=== PATIENT | male | born 1935 | race Caucasian/White ===

== ENCOUNTER 2018-11-23 22:21 | Inpatient (IN) ==
[2018-11-23] MEDS ORDERED: TYLENOL PO ONE (22:40)
[2018-11-23] MEDS ORDERED: NS 1,000 ML IV ONE ×2 (22:40→23:59)
[2018-11-23 23:03] LABS: ALLEN TEST YES; BE 0.8 mmoll (-3.0-3.0); BLOOD TYPE ARTERIAL; HCO3-(ACT) 25.5 mmoll (20.0-26.0); O2(CT) 15.8 mL/dL (15.0-23.0); O2HB 95.6 % (95.0-99.0); PCO2(98.6) 32 mmHg (35-45); PO2(98.6) 83 mmHg (60-100); SAMPLE BLOOD; SAO2 97.9 % (95.0-100.0); THB 11.7 g/dL (11.5-17.4); pH(98.6) 7.48 (7.35-7.45)
[2018-11-23 23:04] LABS: MODALITY CANNULA
--- NOTE | 2018-11-23 23:09 | PROVIDER DOCUMENTATION ---
This chart was entered by Lilian Cruz Scribe, acting as scribe for Mindi Davis CRNP. HPI-General Adult - General Stated Complaint: hip pain Time Seen by Provider: 11/23/18 22:29 Source: EMS Allergies/Adverse Reactions: Patient Allergies Allergy/AdvReac Type Severity Reaction Status Date / Time meperidine HCl * AdvReac Severe Unknown Verified 05/19/13 07:56 [From Demerol] Home Medications: Home Medication List Medication Instructions Recorded Confirmed Last Taken Type Alfuzosin E.r. [Uroxatral] 10 mg PO DAILY 05/17/13 05/17/13 05/19/13 05:00 History Citalopram [Celexa] 40 mg PO DAILY 05/17/13 05/17/13 05/18/13 07:00 History Nabumetone [Relafen] 500 mg PO BID 05/17/13 05/19/13 04/26/13 History Telmisartan [Micardis] 40 mg PO DAILY 05/17/13 05/17/13 05/19/13 05:00 History Docusate Sodium [Colace] 100 mg PO BID #0 capsule 05/20/13 Unknown Rx Hydrocodone/APAP 7.5 mg/325 mg 1 each PO Q4H PRN PRN #15 tablet 05/20/13 Unknown Rx [[place]-7.5] - History of Present Illness -Gen Adult Nature of Presenting Problems: 83 yowm presents w/ems w/cc ems main historian. ems called to pt home due to hip pain on rt side. pt was in bed when pain occurred. when ems arrived at home, pt was moaning and tearful. pt got 50 fentanyl and bolus enroute. pt is warm to palp. pt has hx of dementia and bilat hip replacement. Location of Pain/Injury: reports: lower extremity (rt hip pain) Pain Radiation: reports: no radiation Onset/Duration: reports: just prior to arrival Timing: reports: improving Review of Systems - Adult - REVIEW OF SYSTEMS - ADULT Constitutional: reports: no symptoms reported Eyes: reports: no symptoms reported Ears, Nose, Mouth & Throat: reports: no symptoms reported Cardiovascular: reports: no symptoms reported Respiratory: reports: no symptoms reported Gastrointestinal: reports: no symptoms reported Genitourinary: reports: no symptoms reported Musculoskeletal: reports: see HPI, joint pain (rt hip pain). denies: back pain, joint swelling, neck pain Integumentary: reports: no symptoms reported Neurological: reports: no symptoms reported Psychiatric: reports: no symptoms reported Endocrine: reports: no symptoms reported Hematologic/Lymphatic: reports: no symptoms reported Allergic/Immunologic: reports: no symptoms reported All Other Systems: Reviewed and Negative Past History - Adult - PAST MEDICAL HISTORY-ADULT Review of Records: reports: Old Records Reviewed, Nursing Assessment Review, Medications Reviewed, Social history reviewed & non-contributory. Major Childhood Illnesses: reports: denies history Cardiovascular: reports: HTN Respiratory: reports: denies history Gastrointestinal: reports: denies history Obstetrical/Gynecological: reports: denies history Genitourinary: reports: denies history Musculoskeletal: reports: denies history Neurological: reports: denies history Endocrine/Immune: reports: denies history Other Conditions: reports: other cancer (skin) - PRIOR SURGERIES/PROCEDURES Surgical/Procedure History: reports: joint replacement - IMMUNIZATION STATUS Childhood Immunizations: See Nurse Assessment Flu Vaccine: See Nurse Assessment - FAMILY HISTORY Family History: reviewed, not pertinent Physical Exam-General - PHYSICAL EXAM-ADULT Initial Vital Signs Reviewed: Yes - CONSTITUTIONAL General Appearance: alert, mild distress, thin, lethargic. negative: obtunded, combative - EYES Eyes: PERRL/EOMI, pink conjunctivae - HEAD, EARS, NOSE, MOUTH & THROAT HENMT: normocephalic/atraumatic, moist mucous membranes, normal ENT inspection - NECK Neck: supple, normal inspection - RESPIRATORY Respiratory: chest non-tender, lungs clear, normal breath sounds - CARDIOVASCULAR Cardiovascular: normal peripheral pulses, regular rate, rhythm - GASTROINTESTINAL (ABDOMEN) Abdominal Exam: normal bowel sounds, non tender, soft - LYMPHATIC Lymphatic: no adenopathy - MUSCULOSKELETAL Back Exam: normal inspection, no CVA tenderness, no vertebral tenderness. negative: CVA tenderness, decreased range of motion, vertebral tenderness Extremity: normal range of motion, non-tender, normal inspection, no pedal edema , no calf tenderness, normal capillary refill. negative: deformity, erythema, inflammation Peripheral Pulses: radial (R): 2+, radial (L): 2+ - SKIN Integumentary: normal color, normal turgor, warm/dry, other (psoriasis on dorsal foot and ankle rt side). negative: laceration(s), rash, swelling, tenderness - NEUROLOGIC Neurologic: grossly normal, no motor/sensory deficits - PSYCHIATRIC Psych/Mental Status: normal mood/affect, normal thought content, normal thought process, other (pt lethargic but not disoriented). negative: oriented x 3, depressed affect, paranoid, tearful Progress - PLAN OF CARE/RESULTS Progress/Plan/Lab Results: Laboratory Tests 11/23/18 11/23/18 11/23/18 22:45 23:06 23:06 WBC 8.74 RBC 3.48 L Hgb 11.4 L Hct 33.8 L MCV 97.1 MCH 32.8 H MCHC 33.7 RDW Std Deviation 12.3 Plt Count 144 MPV 11.2 H Immature Gran % (Auto) 0.7 H Neut % (Auto) 91.8 H Lymph % (Auto) 3.3 L [place] % (Auto) 3.2 Eos % (Auto) 0.8 Baso % (Auto) 0.2 Immature Gran # (Auto) 0.06 H Neut # (Auto) 8.02 H Lymph # (Auto) 0.29 L [place] # (Auto) 0.28 Eos # (Auto) 0.07 Baso # (Auto) 0.02 PT INR PTT (Actin FS) Specimen Type ARTERIAL Sample Site R RADIAL pH 7.48 H pCO2 32 L pO2 83 HCO3 25.5 Base Excess 0.8 Oxyhemoglobin 95.6 ABG O2 Sat (Calculated) 15.8 ABG O2 Saturation 97.9 ABG Carboxyhemoglobin 1.30 ABG Methemoglobin 1.0 Ryan Test YES A-a O2 Difference 105.0 Total Hemoglobin 11.7 Lactate 0.80 Liter Flow 3.0 Blood Gas Modality [place] FiO2 % 32.0 Sodium 141 Potassium 4.4 Chloride 106 Carbon Dioxide 22 L Anion Gap 13 BUN 26 H Creatinine 1.5 H Estimated GFR/1.73 m2 45 BUN/Creatinine Ratio 17 Glucose 121 H Calculated Osmolality 287 Calcium 8.7 L Magnesium 1.6 Total Bilirubin 0.55 AST 19 ALT 10 Alkaline Phosphatase 62 Creatine Kinase 133 Troponin T Total Protein 5.8 L Albumin 3.8 Globulin 2.0 Albumin/Globulin Ratio 1.9 Plasma Lactate Urine Source Urine Color Urine Turbidity Urine pH Ur Specific [place] Urine Protein Ur Glucose (Stick) Ur Ketones (Stick) Urine Blood Urine Nitrite Urine Bilirubin Urobilinogen Dipstick Urine Leukocytes Urine WBC (Auto) Urine RBC (Auto) U Epithel Cells (Auto) Urine Bacteria (Auto) 11/23/18 11/23/18 11/23/18 23:06 23:06 23:06 WBC RBC Hgb Hct MCV MCH MCHC RDW Std Deviation Plt Count MPV Immature Gran % (Auto) Neut % (Auto) Lymph % (Auto) [place] % (Auto) Eos % (Auto) Baso % (Auto) Immature Gran # (Auto) Neut # (Auto) Lymph # (Auto) [place] # (Auto) Eos # (Auto) Baso # (Auto) PT 14.4 INR 1.10 PTT (Actin FS) 34.6 Specimen Type Sample Site pH pCO2 pO2 HCO3 Base Excess Oxyhemoglobin ABG O2 Sat (Calculated) ABG O2 Saturation ABG Carboxyhemoglobin ABG Methemoglobin Ryan Test A-a O2 Difference Total Hemoglobin Lactate Liter Flow Blood Gas Modality FiO2 % Sodium Potassium Chloride Carbon Dioxide Anion Gap BUN Creatinine Estimated GFR/1.73 m2 BUN/Creatinine Ratio Glucose Calculated Osmolality Calcium Magnesium Total Bilirubin AST ALT Alkaline Phosphatase Creatine Kinase Troponin T < 0.010 Total Protein Albumin Globulin Albumin/Globulin Ratio Plasma Lactate 0.7 Urine Source Urine Color Urine Turbidity Urine pH Ur Specific [place] Urine Protein Ur Glucose (Stick) Ur Ketones (Stick) Urine Blood Urine Nitrite Urine Bilirubin Urobilinogen Dipstick Urine Leukocytes Urine WBC (Auto) Urine RBC (Auto) U Epithel Cells (Auto) Urine Bacteria (Auto) 11/23/18 23:33 WBC RBC Hgb Hct MCV MCH MCHC RDW Std Deviation Plt Count MPV Immature Gran % (Auto) Neut % (Auto) Lymph % (Auto) [place] % (Auto) Eos % (Auto) Baso % (Auto) Immature Gran # (Auto) Neut # (Auto) Lymph # (Auto) [place] # (Auto) Eos # (Auto) Baso # (Auto) PT INR PTT (Actin FS) Specimen Type Sample Site pH pCO2 pO2 HCO3 Base Excess Oxyhemoglobin ABG O2 Sat (Calculated) ABG O2 Saturation ABG Carboxyhemoglobin ABG Methemoglobin Ryan Test A-a O2 Difference Total Hemoglobin Lactate Liter Flow Blood Gas Modality FiO2 % Sodium Potassium Chloride Carbon Dioxide Anion Gap BUN Creatinine Estimated GFR/1.73 m2 BUN/Creatinine Ratio Glucose Calculated Osmolality Calcium Magnesium Total Bilirubin AST ALT Alkaline Phosphatase Creatine Kinase Troponin T Total Protein Albumin Globulin Albumin/Globulin Ratio Plasma Lactate Urine Source CATH Urine Color YELLOW Urine Turbidity HAZY Urine pH 5.5 Ur Specific [place] 1.016 Urine Protein TRACE A Ur Glucose (Stick) NEGATIVE Ur Ketones (Stick) NEGATIVE Urine Blood MODERATE A Urine Nitrite POSITIVE A Urine Bilirubin NEGATIVE Urobilinogen Dipstick NORMAL Urine Leukocytes LARGE A Urine WBC (Auto) TNTC A Urine RBC (Auto) 20-40 A U Epithel Cells (Auto) <10 Urine Bacteria (Auto) 4+ Discussed results and plan of care with patient family. Family agrees with plan and verbalizes understanding. Result Diagrams: 11/23/18 23:06 11/23/18 23:06 - CONSULTS/PCP/HOSPITALIST Notification #1 *Consult/PCP/Hospitalist*: Dr. Anders Time Discussed: 23:59 Reason/Comments: Admission Consult Disposition: Will see in ED, Admit Departure - Departure Date of Disposition Decision: 11/23/18 Time of Disposition Decision: 23:59 DIAGNOSIS: Renal insufficiency, Hyperglycemia, Chronic anemia UTI (urinary tract infection) Qualifiers: Urinary tract infection type: acute cystitis Hematuria presence: without hematuria Qualified Code(s): N30.00 - Acute cystitis without hematuria Sepsis Qualifiers: Sepsis type: sepsis due to unspecified organism Sepsis acute organ dysfunction status: unspecified Qualified Code(s): A41.9 - Sepsis, unspecified organism Disposition: ADMITTED INPATIENT 09 Certified Medical Emergency: Emergent Condition: Stable - Critical Care Note This patient required my direct & personal management of CC.: No Attestation - Physician/ HARLEEN Attestation Patient care was provided by Advanced Practice Provider:: Yes Advanced Practice Provider:: Mindi Davis Advanced Practice Provider documentation review:: The Mid-level provider documentation, treatment plan and medical decision making was reviewed by the physician who agrees with all treatment and medical decision making by the [facility]. The physician spent face to face time with patient:: No Advanced Practice Provider documentation review:: Supervising physician onsite and consulted in the evaluation and care of this patient. The physician did not have a face to face encounter with the patient. This chart was documented by the indicated scribe, (Lilian Cruz Scribe) and accurately reflects the services I performed and decisions made by me, Mindi Davis CRNP, as attested by the provider's signature.
[2018-11-23 23:42] LABS: URINE SOURCE CATH
[2018-11-23 23:43] LABS: BILIRUBIN URINE NEGATIVE (NEGATIVE); BLOOD URINE MODERATE (NEGATIVE); COLOR YELLOW; GLUCOSE URINE NEGATIVE (NEGATIVE); KETONE URINE NEGATIVE (NEGATIVE); LEUKOCYTES URINE LARGE (NEGATIVE); NITRITE URINE POSITIVE (NEGATIVE); PH URINE 5.5; PROTEIN URINE TRACE mg/dL (NEGATIVE); SP GRAVITY URINE 1.016; TURBIDITY URINE HAZY (CLEAR); UR EPITHELIAL CELLS <10 /HPF (<10); URINE BACTERIA 4+ /HPF; URINE RBC 20-40 /HPF (<10); URINE WBC TNTC /HPF (<10); UROBILINOGEN URINE NORMAL (NORMAL)
[2018-11-23 23:46] LABS: INR 1.1; PROTIME 14.4 Seconds (11.0-16.0)
[2018-11-23 23:47] LABS: PTT 34.6 Seconds (22.3-41.8)
[2018-11-23 23:50] LABS: BASO# 0.02 X1000 (0.0-0.2); BASO% 0.2 % (0.0-0.8); EOS# 0.07 X1000 (0.0-0.7); EOS% 0.8 % (0.0-10.0); HEMATOCRIT 33.8 % (42.0-52.0); HEMOGLOBIN 11.4 g/dL (14.0-18.0); IMM GRAN# 0.06 X1000 (0.0-0.04); IMM GRAN% 0.7 % (0.0-0.5); LYMPH# 0.29 X1000 (1.2-3.4); LYMPH% 3.3 % (20.5-51.1); MCH 32.8 PG (27-31); MCHC 33.7 g/dL (33-37); MCV 97.1 FL (81-99); MONO# 0.28 X1000 (0.11-0.59); MONO% 3.2 % (1.7-9.3); MPV 11.2 FL (7.4-10.4); NEUT# 8.02 X1000 (1.4-6.5); NEUT% 91.8 % (42.2-75.2); PLT 144 X1000 (130-400); RBC 3.48 XMIL (4.7-6.1); RDW 12.3 % (11.5-14.5); WBC 8.74 X1000 (4.8-10.8)
[2018-11-23] MEDS ORDERED: OFIRMEV 1000 MG/ISOTONIC SOLN 1,000 MG/100 ML BOTTLE IV ONE (23:55)
[2018-11-23 23:56] LABS: ALB/GLOB RATIO 1.9; ALBUMIN 3.8 g/dL (3.5-5.0); CALCIUM 8.7 mg/dL (8.8-10.2); CREATININE 1.5 mg/dL (0.7-1.2); MAGNESIUM 1.6 mg/dL (1.5-2.7); POTASSIUM 4.4 mmol/L (3.5-5.1); TOTAL BILIRUBIN 0.55 mg/dL (0.20-1.00); TOTAL PROTEIN 5.8 g/dL (6.3-8.3)
[2018-11-23] MEDS ORDERED: ROCEPHIN 1 GM in NS 50 ML IV ONE (23:58)
[2018-11-24] MEDS ORDERED: TYLENOL PO PRN (01:21)
[2018-11-24] MEDS ORDERED: ROCEPHIN 1 GM in NS 50 ML IV SCH (01:21)
[2018-11-24] MEDS ORDERED: ZOFRAN IV PRN (01:21)
[2018-11-24] MEDS: NS 1,000 ML IV SCH ×3 (02:08→22:14)
[2018-11-24] MEDS: HEPARIN SUBQ SCH ×2 (02:08→17:30)
--- NOTE | 2018-11-24 03:34 | EKG Report ---
Test Performed on : 11/24/2018 00:54:41 AM Test Reason : admit Blood Pressure : / mmHG Vent. Rate : 073 BPM Atrial Rate : 073 BPM P-R Int : 128 ms QRS Dur : 074 ms QT Int : 420 ms P-R-T Axes : 090 018 025 degrees QTc Int : 462 ms Sinus rhythm. with premature atrial complexes. with aberrant conduction. Nonspecific ST and T wave abnormality Abnormal ECG When compared with ECG of 22-FEB-2008 10:11, Nonspecific T wave abnormality now evident in Inferior leads Unconfirmed Result
--- NOTE | 2018-11-24 06:39 | HISTORY AND PHYSICAL ---
PRIMARY CARE PHYSICIAN: Dr. Faulkner. CHIEF COMPLAINT: Fever, chills, right hip pain, and not feeling well. HISTORY OF PRESENTING ILLNESS: An 83-year-old male with a history of psoriasis who had presented to emergency department with a 1-day history of having fever, chills and not feeling well. He also complained of right hip pain. He is brought to the emergency department. He is somewhat confused, and not much information could be obtained from him. Most of the history is obtained from family. As per family, he was complaining of right hip pain, and also having fever and chills. He was evaluated in the emergency department, and he was found to have a urinary tract infection and due to possible early sepsis it was thought that he would need admission for further management. At the time of my examination, he denied however any headache chest pain, shortness of breath, or any weight changes but states that he does not feel well. PAST MEDICAL HISTORY: Includes psoriasis. PAST SURGICAL HISTORY: Bilateral hip replacement. ALLERGIES: Penicillin and meperidine. CURRENT MEDICATIONS: He does not recall, and nursing staff will reconcile. SOCIAL HISTORY: He is a former smoker. No history of alcohol or illicit drug use. FAMILY HISTORY: No history of coronary disease. REVIEW OF SYSTEMS: Fourteen point review of systems is as in HPI. Other systems negative. PHYSICAL EXAMINATION: The patient is resting comfortably now. VITAL SIGNS: Temperature of 102.5 degrees, pulse 82, respirations 20, and blood pressure 135/75. HEENT: Atraumatic, normocephalic. NECK: No masses. CHEST: Clear to auscultation. CARDIOVASCULAR: Regular rate and rhythm. ABDOMEN: Soft. Positive bowel sounds. EXTREMITIES: No edema. NEUROLOGIC: He is awake, alert, and oriented x2. : No bladder distention. SKIN: There is some skin excoriation on the right lower extremity. LABORATORIES AND STUDIES: UA shows moderate blood and nitrite positive, and large leukocytes. WBCs 8.74, hemoglobin 11.4, hematocrit 32.8, platelets 144,000, sodium 141, potassium 4.4, chloride 106, CO2 22, BUN is 26, creatinine is 1.5, and glucose is 121. Troponin 0.010. ASSESSMENT: An 83-year-old elderly male with a history of psoriasis was brought to the emergency department due to patient having fevers and chills, and right hip region pain somewhat confused in the ED. Most of the history is obtained from family members. His laboratories showed that he had a urinary tract infection and due to suspicion of early sepsis it was thought that he would need admission for further management. 1. Altered mental status. 2. Fever and chills. 3. Possible early sepsis. 4. Urinary tract infection. 5. Psoriasis. PLAN: 1. We will admit patient to medical floor with telemetry. 2. Continue with neuro checks. 3. Check blood cultures and urine cultures. Start patient on IV antibiotics. 4. Continue with IV fluid hydration. 5. We will continue with his home medications for psoriasis. 6. We will put will put patient on DVT prophylaxis with Lovenox. 7. We will place patient on DVT prophylaxis with heparin. 8. We will continue to follow and reassess, and make further recommendation based on patient's clinical course. cc: MD Sergey Armas Jr, MD
--- NOTE | 2018-11-24 07:09 | Diag Imaging Result Doc PS360 ---
EXAM: CHEST-1 VIEW 11/23/2018 HISTORY: Fever TECHNIQUE: AP portable upright at 2246 COMMENT: There is a calcified granuloma in the left costophrenic angle and ill-defined opacities present over the left lower lobe. There are no previous studies. IMPRESSION: Left lower lobe bronchopneumonia. Electronically signed by Mikhail Adams 11/24/2018 7:07 AM
--- NOTE | 2018-11-24 07:34 | Diag Imaging Result Doc PS360 ---
EXAM: XRAY HIP W/PELVIS BILAT 3-4VWS 11/23/2018 HISTORY: pain TECHNIQUE: AP pelvis and bilateral hips five views COMMENT: There are bilateral hip prostheses. There is heterotopic bone formation lateral to the acetabula bilaterally. There is some lucency around the upper portions of the stems of the prostheses bilaterally. The right stem also is apparently just under or through the lateral cortex of the proximal femur. There are no previous studies available for comparison. IMPRESSION: No evidence of fracture. The possibility of loosening of the stems of both femoral prostheses cannot be excluded, particularly on the right. Electronically signed by Mikhail Adams 11/24/2018 7:31 AM
--- NOTE | 2018-11-24 09:12 | PROGRESS NOTE ---
DATE: 11/24/2018 SUBJECTIVE: The patient has no new complaints. His fever is down to 99 degrees Fahrenheit. Apparently, it had been up to 103 yesterday. I asked him about his pain since that is what prompted the call to the ambulance, and he is a little confused. He does have some dementia. Other family members were present. Apparently he initially complained of right hip pain. He was given fentanyl, brought to the emergency room. Then he complains of left thigh pain, no right hip pain any more. He has had severe arthritis and has bilateral hip replacements. He has severe arthritis in his neck and his back. Some of this is chronic, but of course we will be watchful to make sure that he does not have a septic joint since he has hardware in his body. He does have a urinary tract infection with white blood cells too numerous to count. Creatinine is up a little bit to 1.5 consistent with chronic kidney disease. His oxygen level was a little low at 83, his pCO2 32, and pH was 7.48. White count was normal at 8740. X-ray of his hips showed no evidence of fracture, but the possibility of listing of the stems of both femoral prostheses cannot be excluded, particularly on the right. OBJECTIVE: Vital Signs: On physical exam, shows vital signs with a temperature of now 98.6 degrees Fahrenheit, pulse 105, blood pressure 104/48, oxygen saturation is 100% by nasal cannula at 3 L. HEENT: He is normocephalic. EOMS intact. PERRLA. Throat clear. Lungs: Clear to auscultation and percussion without rhonchi, rales, or wheezes. Heart: Regular rate and rhythm to sinus tachycardia without murmurs, gallops, friction rubs. Abdomen: Soft. Active bowel sounds. No organomegaly or tenderness, although he did say that earlier he had some abdominal discomfort that has since gone away. Neurological exam: Intact grossly. He does have a little confusion. CULTURES: Blood cultures and urine cultures are pending. ASSESSMENT: 1. Urinary tract infection. 2. Bilateral hip pain. 3. Possible sepsis. 4. Dementia. PLAN: Continue with IV antibiotics at this time. If his pain comes back in his hips, we may consider consultation with Orthopedics. cc: Sergey Faulkner Jr, MD
[2018-11-24] MEDS ORDERED: ATIVAN IV ONE (13:27)
[2018-11-24] MEDS: ROCEPHIN 1 GM in NS 50 ML IV SCH (14:33)
[2018-11-24] MEDS ORDERED: ATIVAN IV PRN (18:08)
--- NOTE | 2018-11-24 18:16 | ORTHOPAEDICS CONSULTATION ---
DATE: 11/24/2018 REASON FOR CONSULTATION: Bilateral hip pain. HISTORY OF PRESENT ILLNESS: Mr. Godoy is an 83-year-old male with past medical history of osteoarthritis, status post bilateral hip replacements, who presented to the emergency department with a 1-day history of fever, chills and general malaise. On arrival to the ER he did complain of bilateral hip pain. He states he has had this kind of on and off over the last several years. He has seen Dr. Dangelo over at the [facility]. It looks like that last visit was sometime in 2017. The hips were done several years ago. I am not sure about which side, but in 1999 and 2007 by a surgeon in [place]. He states he did well initially, but over the last couple of years he has had pain kind of on and off at both hips. He feels like over the last few days he has had some increased right hip pain. When he was brought to the emergency room, he was found to have a urinary tract infection and there was some worry about sepsis. Because of the hip pain and the possible sepsis, there was some concern for a septic joint as well. Orthopedics has been consulted for further management of the bilateral hip pain. PAST MEDICAL HISTORY: 1. Osteoarthritis of the hips. 2. Psoriasis. PAST SURGICAL HISTORY: Bilateral hip replacement. ALLERGIES: Penicillin and Demerol. MEDICATIONS: Please refer to the chart. SOCIAL HISTORY: Former smoker, but no history of alcohol or illicit drug use. He does live at home with his . FAMILY HISTORY: Noncontributory. REVIEW OF SYSTEMS: A 10-point review of systems was completed and mentioned above in HPI, otherwise negative. PHYSICAL EXAMINATION: Vital signs: His temperature is 98.5 degrees, pulse is 56, respirations 20, blood pressure 115/63. He is 100% on 2 L nasal cannula.Neurological: He is alert and oriented to person and place. He does have a little bit of confusion kind of on and off. He is answering my questions appropriately. HEENT: Head is atraumatic, normocephalic. Pupils are equal, round, reactive to light. Cardiovascular: Regular rate and rhythm. He is a little bradycardic at times. Pulmonary: Breathing unlabored. Abdomen appears nondistended. Extremities: He is able to move both the hips well. He has good sensation to the lower extremities. He has a 2+ pedal pulse bilaterally. He does not have any pain with passive range of motion. He does not have any tenderness to palpation at the hips. He says the pain comes and goes, but is mostly when he is weightbearing. IMAGING: A pelvis film does show some possible loosening of those implants, but there is not much change from his previous films in 2017. ASSESSMENT: Bilateral hip pain status post bilateral hip arthroplasty. PLAN: I think the plan for Mr. Godoy will be just to watch this. I do not see a definite reason why we would need to aspirate either joint. If he does continue to have bilateral hip pain and it really flares up, or if he starts having trouble with passive range of motion and the area becomes really inflamed, we may need to do a joint aspiration under fluoroscopy or ultrasound to rule out infection to those joints, but for now I think we can just treat with IV antibiotics and follow his posttreatment course. If he does have continued pain with the hips not from sepsis, we would plan to get him over to [place] to follow up for a possible hip revision. Thank you for the consult. We will continue to follow him. Dictated by AIDA Larson for Andres Shipley MD cc: AIDA Larson MD Roger H. Moss Jr, MD MTDD
[2018-11-25] MEDS: ROCEPHIN 1 GM in NS 50 ML IV SCH ×2 (00:18→12:26)
[2018-11-25 08:40] LABS: BASO# 0.02 X1000 (0.0-0.2); BASO% 0.3 % (0.0-0.8); EOS# 0.08 X1000 (0.0-0.7); EOS% 1.1 % (0.0-10.0); HEMATOCRIT 35.6 % (42.0-52.0); HEMOGLOBIN 11.7 g/dL (14.0-18.0); LYMPH# 0.95 X1000 (1.2-3.4); LYMPH% 12.9 % (20.5-51.1); MCH 32.5 PG (27-31); MCHC 32.9 g/dL (33-37); MCV 98.9 FL (81-99); MONO# 0.71 X1000 (0.11-0.59); MONO% 9.7 % (1.7-9.3); MPV 11.7 FL (7.4-10.4); NEUT# 5.59 X1000 (1.4-6.5); PLT 135 X1000 (130-400); RDW 12.6 % (11.5-14.5); WBC 7.35 X1000 (4.8-10.8)
--- NOTE | 2018-11-25 08:59 | PROGRESS NOTE ---
DATE: 11/25/2018 SUBJECTIVE: The patient says he is feeling much better and would like to go home. I did explain to him that we are still awaiting on blood cultures and urine cultures but he is feeling better. He is much calmer. He had to be sedated a little bit yesterday as he became agitated. OBJECTIVE: Blood pressure is 104/57, respirations 20, pulse 101, temperature 98.8 degrees Fahrenheit. HEENT: He is normocephalic. EOMs intact. PERRLA. Throat clear. Lungs: Clear to auscultation and percussion without rhonchi, rales, or wheezes. Heart: Regular rate and rhythm without murmurs, gallops, or friction rubs. Abdomen: Soft. Active bowel sounds. No organomegaly or tenderness. Orthopedics had seen him about his hips. At this time, we are waiting to see what his cultures show. ASSESSMENT: 1. Urinary tract infection. 2. Dementia. 3. Agitation. 4. Status post bilateral hip replacement with chronic and new hip pain. PLAN: Continue to support him with IV antibiotics. cc: Sergey Faulkner Jr, MD
[2018-11-25 09:24] LABS: CALCIUM 7.9 mg/dL (8.8-10.2); CREATININE 1.3 mg/dL (0.7-1.2); POTASSIUM 4.3 mmol/L (3.5-5.1)
[2018-11-25] MEDS: HEPARIN SUBQ SCH ×2 (09:26→20:28)
[2018-11-26] MEDS: ROCEPHIN 1 GM in NS 50 ML IV SCH ×2 (00:26→11:14)
--- NOTE | 2018-11-26 07:04 | ORTHOPAEDICS PROGRESS NOTE ---
DATE: 11/25/2018 SUBJECTIVE: Patient is an 83-year-old female who was admitted to the hospital per Dr. Faulkner with altered mental status, fevers, chills and urinary tract infection with possible early sepsis. Patient was complaining of discomfort in his hips. He has been treated with antibiotics and he is much improved today, much more alert and states his pain is overall better as well. Patient does have a chronic history of back problems. PHYSICAL EXAMINATION: The patient's bilateral hips have good range of motion. There is no significant pain with range of motion. He is nontender along the lateral aspect of the trochanteric bursa. He has some mild discomfort along the lumbar region paraspinal muscle. He has no crepitus with range of motion. IMAGING: X-rays were reviewed and did reveal an apparent chronic change to the right hip which appears to be stable compared to last year's films in the office when he underwent evaluation per Dr. Dangelo. The left hip has no evidence of acute abnormality, again, with the comparison films from last year. IMPRESSION: 1. Lumbar degenerative disk disease. 2. Status post bilateral total hip arthroplasty. PLAN: At this point, I feel the patient's pain was likely secondary to lumbar etiology. He is much improved today and overall he feels better and seems to be improving. Will be available if needed. cc: MD Sergey Arciniega Jr, MD
[2018-11-26] MEDS: HEPARIN SUBQ SCH (07:59)
[2018-11-26 08:15] LABS: BASO# 0.01 X1000 (0.0-0.2); BASO% 0.1 % (0.0-0.8); EOS# 0.32 X1000 (0.0-0.7); EOS% 4.6 % (0.0-10.0); HEMATOCRIT 34.6 % (42.0-52.0); HEMOGLOBIN 11.4 g/dL (14.0-18.0); LYMPH# 1.25 X1000 (1.2-3.4); LYMPH% 18.1 % (20.5-51.1); MCH 32.3 PG (27-31); MCHC 32.9 g/dL (33-37); MONO% 17.4 % (1.7-9.3); MPV 11.7 FL (7.4-10.4); NEUT# 4.11 X1000 (1.4-6.5); NEUT% 59.8 % (42.2-75.2); PLT 142 X1000 (130-400); RBC 3.53 XMIL (4.7-6.1); RDW 12.5 % (11.5-14.5); WBC 6.89 X1000 (4.8-10.8)
[2018-11-26 08:43] LABS: AGAP 9; BUN 16 mg/dL (8-22); CALCIUM 8.2 mg/dL (8.8-10.2); CHLORIDE 106 mmol/L (98-107); COSMO 279; CREATININE 1.1 mg/dL (0.7-1.2); ESTIMATED GFR > 60; GLUCOSE 99 mg/dL (70-104); POTASSIUM 3.8 mmol/L (3.5-5.1); SODIUM 139 mmol/L (136-145); TCO2 24 mmol/L (25-35)
--- NOTE | 2018-11-26 09:52 | Diag Imaging Result Doc PS360 ---
EXAM: CHEST-2 VIEWS HISTORY: opacities left lower lobe TECHNIQUE: Chest two views COMPARISON: 11/23/2018 FINDINGS: The lungs are hyperexpanded. There are small pleural effusions. The heart is not enlarged. No pulmonary edema. No infiltrates. Small scattered granuloma. IMPRESSION: Emphysema with small pleural effusions. Electronically signed by Anderson Ralph 11/26/2018 9:50 AM
[2018-11-26 14:08] VITALS: BP 125/73
--- NOTE | 2018-11-27 06:10 | DISCHARGE SUMMARY ---
ADMISSION DATE: 11/24/2018 DISCHARGE DATE: 11/26/2018 FINAL DIAGNOSES: 1. Urinary tract infection. 2. Altered mental status. SECONDARY DIAGNOSES: 1. Possible dementia exacerbated by conditions above. 2. Low back pain. 3. Bilateral hip pain. CONSULTATIONS: Orthopedics Dr. Shipley. HOSPITAL COURSE: The patient is an 83-year-old, white male who presented with fever, chills and right hip pain especially came to the emergency room mostly complaining of the hip pain, but was confused and had fever up to 103 degrees Fahrenheit. Apparently, before he came in the hospital temperature here was 102.5 degrees Fahrenheit. Blood cultures were done which were negative. Urine cultures grew E. Coli sensitive to most antibiotics. He was initially placed on Rocephin 1 g IV q.12 hours. He has shown improvement. He is now afebrile. Consultation with Dr. Shipley. Impression was that his hips are probably fine, and this was referred back pain. The patient does not want any other back workup at this time. Family was concerned about altered mental status. This seems to be improving, and he is getting over the urinary tract infection. There had been a question on his chest x-ray about some opacifications though his lungs were clear. I re-x-rayed his chest today, and there were no opacifications reported. He does not seem to have any respiratory problems at this point. PHYSICAL EXAMINATION: Vital Signs: Temperature 98.3 degrees Fahrenheit, pulse 61, respirations 15 and blood pressure 125/73. HEENT: Normocephalic. EOMs intact. PERRLA. Throat clear. Lungs: Clear to auscultation and percussion without rhonchi, rales, or wheezes. Heart: Regular rate and rhythm without murmurs, gallops, or friction rubs. Abdomen: Soft. Active bowel sounds. No organomegaly or tenderness having no hip pain at this time. Neurologic: Exam intact grossly. PLAN: We will discharge home. We will convert him over to Macrobid 100 mg p.o. b.i.d. for 10 days. We will see him back in the office in 1 week. I will repeat a urinalysis. The family has been concerned about some dementia. We did a SLUMS test a year ago in the office, and he scored 22/30 so that we could certainly repeat that test and see if his memory has gotten any worse. Thank you to Dr. Shipley the hadoop consultant. cc: Sergey Faulkner Jr, MD
== END 2018-11-26 17:30 | disposition home or self-care (01) | DRG 690 ==
LOC: EDBD 22:21 → EDUNIT# 22:21 → ED 22:21 → 1N 11-24 00:50 → SUATTDRO 11-24 00:50
PROVIDERS: ADMIT Emergency Medicine; ATTEND Emergency Medicine

== ENCOUNTER 2019-04-15 19:25 | Inpatient (IN) ==
[2019-04-15] MEDS ORDERED: NS 500 ML IV ONE (19:32)
[2019-04-15] MEDS ORDERED: VANCOMYCIN 1 GM/NS 1 GM/250 ML IVPB IV ONE (19:32)
[2019-04-15] MEDS ORDERED: MAXIPIME 2 GM in NS 100 ML IV ONE (19:32)
[2019-04-15] MEDS ORDERED: NS 1,000 ML IV ONE (19:32)
[2019-04-15] MEDS ORDERED: SOLU-MEDROL IV ONE (19:34)
--- NOTE | 2019-04-15 19:37 | PROVIDER DOCUMENTATION ---
HPI-Fever - General Chief Complaint: SEPSIS ALERT - D Stated Complaint: unresponsive, lll pna, fever Time Seen by Provider: 04/15/19 19:30 Source: EMS, intermediate records Allergies/Adverse Reactions: Patient Allergies Allergy/AdvReac Type Severity Reaction Status Date / Time Penicillins Allergy Unknown Verified 04/15/19 20:59 meperidine HCl * AdvReac Severe Unknown Verified 04/15/19 20:59 [From [facility]] Home Medications: Home Medication List Medication Instructions Recorded Confirmed Last Taken Type Acetaminophen 2 tab PO PRN PRN 04/15/19 04/15/19 04/15/19 History Buspirone HCl 1 tab PO TID 04/15/19 04/15/19 04/15/19 History Cholecalciferol (Vitamin D3) 1 tab PO DAILY 04/15/19 04/15/19 04/15/19 History [Vitamin D3] Doxycycline Hyclate 1 tab PO BID 04/15/19 04/15/19 04/15/19 History L. Acidophilus/Pectin, [place] 1 cap PO DAILY 04/15/19 04/15/19 04/15/19 History [Acidophilus Capsule] Levofloxacin [Levaquin] 1 tab PO DAILY 04/15/19 04/15/19 04/15/19 History Memantine HCl 1 tab PO BID 04/15/19 04/15/19 04/15/19 History Midodrine HCl 1 tab PO TID 04/15/19 04/15/19 04/15/19 History Sodium Bicarbonate 1 tab PO DAILY 04/15/19 04/15/19 04/15/19 History Trazodone HCl 0.5 tab PO QHS 04/15/19 04/15/19 04/14/19 History Triamcinolone Acetonide 1 applic TD BID 04/15/19 04/15/19 04/15/19 History - History of Present Illness-Fever Nature of Presenting Problem: Patient is a 84 year old white male, intermediate resident at [facility] diagnosed with RLL pneumonia who presents by EMS with hypotension,fever, and lethargy. Onset/Duration: reports: unsure Timing: reports: still present, getting worse Context: reports: decreased mental status, from intermediate Recent Illness?: reports: pneumonia Associated Symptoms: reports: fever/chills, weakness - Glascow Coma Score Best Eye Response (Carlota): (4) open spontaneously Best Verbal Response (Carlota): (5) oriented Best Motor Response (Carlota): (4) withdraws to pain [place] Total: 13 Review of Systems - Adult - REVIEW OF SYSTEMS - ADULT ROS:: unobtainable per condition Constitutional: reports: fever Respiratory: reports: cough, shortness of breath Past History - Adult - PAST MEDICAL HISTORY-ADULT Review of Records: reports: Old Records Reviewed, Nursing Assessment Review, Medications Reviewed, Social history reviewed & non-contributory. Major Childhood Illnesses: reports: denies history Cardiovascular: reports: HTN Respiratory: reports: denies history Gastrointestinal: reports: denies history Obstetrical/Gynecological: reports: denies history Genitourinary: reports: denies history Musculoskeletal: reports: denies history Neurological: reports: denies history Endocrine/Immune: reports: denies history Other Conditions: reports: other cancer (skin) - PRIOR SURGERIES/PROCEDURES Surgical/Procedure History: reports: joint replacement - IMMUNIZATION STATUS Childhood Immunizations: See Nurse Assessment Flu Vaccine: See Nurse Assessment - FAMILY HISTORY Family History: reviewed, not pertinent - SOCIAL HISTORY Substance Use: none/never Living Situation: care facility Physical Exam-General - PHYSICAL EXAM-ADULT Initial Vital Signs Reviewed: Yes - CONSTITUTIONAL General Appearance: lethargic, slow to respond - EYES Eyes: other (clear PERRL) - HEAD, EARS, NOSE, MOUTH & THROAT HENMT: other (dry mucous membranes) - NECK Neck: supple - RESPIRATORY Respiratory: no respiratory distress, no accessory muscle use, decreased breath sounds (decreased R>L) - CARDIOVASCULAR Cardiovascular: regular rate, rhythm - GASTROINTESTINAL (ABDOMEN) Abdominal Exam: soft, no organomegaly - MUSCULOSKELETAL Back Exam: normal inspection Extremity: non-tender - SKIN Integumentary: other (decreased turgor) - NEUROLOGIC Neurologic: other (nonfocal, uncooperative to exam) Progress - PLAN OF CARE/RESULTS Progress/Plan/Lab Results: Vital Signs - 8 hr 04/15/19 19:28 04/15/19 19:33 04/15/19 19:34 Temperature 99.9 F H Pulse Rate 91 H 79 70 Respiratory Rate 21 13 10 L Blood Pressure 72/46 72/46 O2 Sat by Pulse Oximetry 100 100 100 04/15/19 19:42 04/15/19 19:44 04/15/19 19:45 Temperature Pulse Rate 99 H 99 H 88 Respiratory Rate 18 20 18 Blood Pressure 91/49 86/61 O2 Sat by Pulse Oximetry 99 95 100 04/15/19 19:48 04/15/19 19:53 04/15/19 19:58 Temperature Pulse Rate 78 76 138 H Respiratory Rate 21 22 16 Blood Pressure 87/58 83/55 85/59 O2 Sat by Pulse Oximetry 98 100 100 04/15/19 20:00 04/15/19 20:04 04/15/19 20:06 Temperature Pulse Rate 78 68 80 Respiratory Rate 18 22 13 Blood Pressure 88/47 85/48 O2 Sat by Pulse Oximetry 100 100 100 04/15/19 20:08 04/15/19 20:10 04/15/19 20:13 Temperature 99.8 F H Pulse Rate 81 92 H Respiratory Rate 18 15 Blood Pressure 92/49 86/56 O2 Sat by Pulse Oximetry 95 99 04/15/19 20:15 04/15/19 20:18 04/15/19 20:23 Temperature Pulse Rate 80 75 88 Respiratory Rate 14 13 22 Blood Pressure 92/51 95/54 O2 Sat by Pulse Oximetry 99 98 98 04/15/19 20:28 04/15/19 20:30 04/15/19 20:33 Temperature Pulse Rate 70 75 75 Respiratory Rate 16 30 H 16 Blood Pressure 102/51 91/51 O2 Sat by Pulse Oximetry 97 96 97 Laboratory Results - last 24 hr 04/15/19 04/15/19 04/15/19 19:52 19:52 19:52 WBC 5.19 RBC 2.31 L Hgb 7.8 L Hct 24.4 L MCV 105.6 H MCH 33.8 H MCHC 32.0 L RDW Std Deviation 15.3 H Plt Count 231 MPV 10.2 Neut % (Auto) 67.9 Lymph % (Auto) 13.9 L [place] % (Auto) 16.8 H Eos % (Auto) 1.2 Baso % (Auto) 0.2 Neut # (Auto) 3.53 Lymph # (Auto) 0.72 L [place] # (Auto) 0.87 H Eos # (Auto) 0.06 Baso # (Auto) 0.01 PT 13.8 INR 1.04 PTT (Actin FS) 36.9 Specimen Type Sample Site pH pCO2 pO2 HCO3 Base Excess Oxyhemoglobin ABG O2 Sat (Calculated) ABG O2 Saturation ABG Carboxyhemoglobin ABG Methemoglobin Ryan Test A-a O2 Difference Total Hemoglobin Lactate Liter Flow Blood Gas Modality FiO2 % Sodium 138 Potassium 4.3 Chloride 102 Carbon Dioxide 27 Anion Gap 9 BUN 22 Creatinine 1.4 H Estimated GFR/1.73 m2 49 BUN/Creatinine Ratio 16 Glucose 96 Calculated Osmolality 279 Calcium 8.2 L Magnesium 1.7 Total Bilirubin 0.29 AST 27 ALT 16 Alkaline Phosphatase 62 Creatine Kinase 146 Troponin T Total Protein 4.6 L Albumin 2.6 L Globulin 2.0 Albumin/Globulin Ratio 1.3 Plasma Lactate Urine Source Urine Color Urine Turbidity Urine pH Ur Specific [place] Urine Protein Ur Glucose (Stick) Ur Ketones (Stick) Urine Blood Urine Nitrite Urine Bilirubin Urobilinogen Dipstick Urine Leukocytes Urine WBC (Auto) Urine RBC (Auto) U Epithel Cells (Auto) Urine Bacteria (Auto) 04/15/19 04/15/19 04/15/19 19:52 19:52 19:52 WBC RBC Hgb Hct MCV MCH MCHC RDW Std Deviation Plt Count MPV Neut % (Auto) Lymph % (Auto) [place] % (Auto) Eos % (Auto) Baso % (Auto) Neut # (Auto) Lymph # (Auto) [place] # (Auto) Eos # (Auto) Baso # (Auto) PT INR PTT (Actin FS) Specimen Type Sample Site pH pCO2 pO2 HCO3 Base Excess Oxyhemoglobin ABG O2 Sat (Calculated) ABG O2 Saturation ABG Carboxyhemoglobin ABG Methemoglobin Ryan Test A-a O2 Difference Total Hemoglobin Lactate Liter Flow Blood Gas Modality FiO2 % Sodium Potassium Chloride Carbon Dioxide Anion Gap BUN Creatinine Estimated GFR/1.73 m2 BUN/Creatinine Ratio Glucose Calculated Osmolality Calcium Magnesium Total Bilirubin AST ALT Alkaline Phosphatase Creatine Kinase Troponin T 0.092 H Total Protein Albumin Globulin Albumin/Globulin Ratio Plasma Lactate 0.8 Urine Source CATH Urine Color YELLOW Urine Turbidity CLEAR Urine pH 6.5 Ur Specific [place] 1.019 Urine Protein TRACE A Ur Glucose (Stick) NEGATIVE Ur Ketones (Stick) NEGATIVE Urine Blood NEGATIVE Urine Nitrite NEGATIVE Urine Bilirubin NEGATIVE Urobilinogen Dipstick NORMAL Urine Leukocytes NEGATIVE Urine WBC (Auto) <10 Urine RBC (Auto) <10 U Epithel Cells (Auto) <10 Urine Bacteria (Auto) NEGATIVE 04/15/19 20:00 WBC RBC Hgb Hct MCV MCH MCHC RDW Std Deviation Plt Count MPV Neut % (Auto) Lymph % (Auto) [place] % (Auto) Eos % (Auto) Baso % (Auto) Neut # (Auto) Lymph # (Auto) [place] # (Auto) Eos # (Auto) Baso # (Auto) PT INR PTT (Actin FS) Specimen Type ARTERIAL Sample Site R RADIAL pH 7.45 pCO2 40 pO2 186 H HCO3 27.7 H Base Excess 3.5 H Oxyhemoglobin 96.7 ABG O2 Sat (Calculated) 11.2 L ABG O2 Saturation 98.2 ABG Carboxyhemoglobin 0.80 ABG Methemoglobin 0.7 Ryan Test YES A-a O2 Difference 78.0 Total Hemoglobin 7.9 L Lactate 0.50 Liter Flow 6.0 Blood Gas Modality [place] FiO2 % 44.0 Sodium Potassium Chloride Carbon Dioxide Anion Gap BUN Creatinine Estimated GFR/1.73 m2 BUN/Creatinine Ratio Glucose Calculated Osmolality Calcium Magnesium Total Bilirubin AST ALT Alkaline Phosphatase Creatine Kinase Troponin T Total Protein Albumin Globulin Albumin/Globulin Ratio Plasma Lactate Urine Source Urine Color Urine Turbidity Urine pH Ur Specific [place] Urine Protein Ur Glucose (Stick) Ur Ketones (Stick) Urine Blood Urine Nitrite Urine Bilirubin Urobilinogen Dipstick Urine Leukocytes Urine WBC (Auto) Urine RBC (Auto) U Epithel Cells (Auto) Urine Bacteria (Auto) Orders Category Date Time Status Cardiac Monitoring DIRECTED Care 04/15/19 19:31 Active Chavira Cath Insertion ORDERED Care 04/15/19 19:32 Active IV Insertion ORDERED Care 04/15/19 19:31 Completed Intake and Output-Strict ORDERED Care 04/15/19 19:32 Active Notify MD of + Sepsis Screen NOW Care 04/15/19 19:31 Active Notify Physician As Ordered Care 04/15/19 19:31 Active Repeat Vital Signs .Blood Pressure Care 04/15/19 19:32 Active Repeat Vital Signs .Heart Rate Care 04/15/19 19:32 Active Repeat Vital Signs .Oxygen Saturation Care 04/15/19 19:32 Active Repeat Vital Signs .Respiratory Rate Care 04/15/19 19:32 Active Repeat Vital Signs .Temp Care 04/15/19 19:32 Active CHEST-1 VIEW [RAD] Stat Exams 04/15/19 19:31 Completed ABG [RESP] Routine Lab 04/15/19 20:00 Completed BLOOD CULTURE [BLDCUL] Stat Lab 04/15/19 19:52 Results CBC WITH DIFF [HEME] Stat Lab 04/15/19 19:52 Completed CK PROFILE [SP CHEM] Stat Lab 04/15/19 19:52 Completed COMPREHENSIVE METABOLIC PANEL [CHEM] Stat Lab 04/15/19 19:52 Completed LACTATE, PLASMA [CHEM] Lab 04/15/19 22:45 Uncollected LACTATE, PLASMA [CHEM] Lab 04/16/19 01:45 Uncollected LACTATE, PLASMA [CHEM] Q3H Lab 04/15/19 19:52 Completed MAGNESIUM [CHEM] Stat Lab 04/15/19 19:52 Completed PROTIME WITH INR [COAG] Stat Lab 04/15/19 19:52 Completed PTT [COAG] Stat Lab 04/15/19 19:52 Completed TROPONIN T Stat Lab 04/15/19 19:52 Completed URINALYSIS W/POSS RFLX CULT [URINALYSIS] Stat Lab 04/15/19 19:52 Completed 0.9% Sodium Chloride Inj [Ns] 1,000 ml Med 04/15/19 19:32 Discontinued IV As Directed mls/hr 0.9% Sodium Chloride Inj [Ns] 500 ml Med 04/15/19 19:32 Discontinued IV 999 mls/hr Acetaminophen [Tylenol] Med 04/15/19 19:39 Discontinued 650 mg OR NOW ONE CefEPIME [Maxipime] 2 gm Med 04/15/19 19:32 Discontinued 0.9% Sodium Chloride Inj [Ns] 100 ml IV NOW Dopamine 400 mg/D5w Med 04/15/19 19:45 Discontinued 400 mg in 500 ml IV As Directed mls/hr Dopamine 800 mg/D5w Med 04/15/19 21:14 Active 800 mg in 500 ml IV As Directed mls/hr Methylprednisolone Sod Succ [Solu-Medrol] Med 04/15/19 19:34 Discontinued 125 mg IV STAT ONE Pharmacy Order [Vancomycin IV Per Pharmacy] Med 04/15/19 19:45 Active 1 each MISC DIRECTED Vancomycin 1 gm/Ns Med 04/17/19 09:00 Active 1 gm in 250 ml IV Q36H Vancomycin 1,500 mg Med 04/15/19 21:00 Active 0.9% Sodium Chloride Inj [Ns] 250 ml IV NOW Oxygen Device Stat Oth 04/15/19 19:31 Active EKG [EKG] Stat Ther 04/15/19 19:36 Draft Result Diagrams: 04/15/19 19:52 04/15/19 19:52 - EKG 1 Time of EKG reading by physician:: 19:31 EKG Read and Signed by:: Jone Abbott Rate: 91 Rhythm: NSR QRS: other (low voltage QRS) ST Wave: non-specific ST changes Comments: no STEMI Departure - Departure Date of Disposition Decision: 04/15/19 Time of Disposition Decision: 21:34 DIAGNOSIS: Sepsis associated hypotension RLL pneumonia Qualifiers: Pneumonia type: due to unspecified organism Qualified Code(s): J18.1 - Lobar pn eumonia, unspecified organism Disposition: ADMITTED INPATIENT 09 Certified Medical Emergency: Emergent Condition: Critical - Critical Care Note This patient required my direct & personal management of CC.: Yes Total Time (mins): 55 Critical Care Statement: This patient required my direct personal management to treat or rule out processes, the absence of which, could potentiallly result in sudden, clinically significant life or limb threatening deterioration. Attestation - Physician/ HARLEEN Attestation Patient care was provided by Advanced Practice Provider:: No The physician spent face to face time with patient:: Yes Advanced Practice Provider documentation review:: Supervising physician onsite and consulted in the evaluation and care of this patient. The physician did have a face to face encounter with the patient.
[2019-04-15] MEDS ORDERED: TYLENOL PR ONE (19:39)
[2019-04-15] MEDS ORDERED: VANCOMYCIN IV PER PHARMACY MISC SCH ×2 (19:45→22:30)
[2019-04-15] MEDS ORDERED: DOPAMINE 400 MG/D5W 400 MG/500 ML IV.SOLN IV SCH (19:45)
--- NOTE | 2019-04-15 19:52 | EKG Report ---
Test Performed on : 04/15/2019 7:30:43 PM Test Reason : UNRESPONSIVE Blood Pressure : / mmHG Vent. Rate : 091 BPM Atrial Rate : 091 BPM P-R Int : 144 ms QRS Dur : 092 ms QT Int : 364 ms P-R-T Axes : 047 -03 046 degrees QTc Int : 447 ms Sinus rhythm. with marked sinus arrhythmia. with occasional premature ventricular complexes. Low voltage QRS Borderline ECG When compared with ECG of 24-NOV-2018 00:54, premature ventricular complexes. are now present aberrant conduction. is no longer present Unconfirmed Result
[2019-04-15 20:04] LABS: URINE SOURCE CATH
[2019-04-15 20:04] LABS: ALLEN TEST YES; BE 3.5 mmoll (-3.0-3.0); BLOOD TYPE ARTERIAL; HCO3-(ACT) 27.7 mmoll (20.0-26.0); METHB 0.7 % (0.0-1.5); O2(CT) 11.2 mL/dL (15.0-23.0); O2HB 96.7 % (95.0-99.0); PCO2(98.6) 40 mmHg (35-45); PO2(98.6) 186 mmHg (60-100); SAMPLE BLOOD; SAO2 98.2 % (95.0-100.0); THB 7.9 g/dL (11.5-17.4); pH(98.6) 7.45 (7.35-7.45)
[2019-04-15 20:06] LABS: MODALITY CANNULA
--- NOTE | 2019-04-15 20:07 | Diag Imaging Result Doc PS360 ---
EXAM: CHEST-1 VIEW HISTORY: fever,pneumonia TECHNIQUE: Single view COMPARISON: 11/26/2018 FINDINGS: The lungs are well expanded. The heart is not enlarged. The vessels are not distended. There are basilar infiltrates. No effusion identified. IMPRESSION: Lower lobe pneumonia Electronically signed by Anderson Ralph 04/15/2019 8:04 PM
[2019-04-15 20:13] LABS: BILIRUBIN URINE NEGATIVE (NEGATIVE); BLOOD URINE NEGATIVE (NEGATIVE); COLOR YELLOW; GLUCOSE URINE NEGATIVE (NEGATIVE); KETONE URINE NEGATIVE (NEGATIVE); LEUKOCYTES URINE NEGATIVE (NEGATIVE); NITRITE URINE NEGATIVE (NEGATIVE); PH URINE 6.5; PROTEIN URINE TRACE mg/dL (NEGATIVE); SP GRAVITY URINE 1.019; TURBIDITY URINE CLEAR (CLEAR); UR EPITHELIAL CELLS <10 /HPF (<10); URINE BACTERIA NEGATIVE /HPF; URINE RBC <10 /HPF (<10); URINE WBC <10 /HPF (<10); UROBILINOGEN URINE NORMAL (NORMAL)
[2019-04-15 20:25] LABS: BASO# 0.01 X1000 (0.0-0.2); BASO% 0.2 % (0.0-0.8); EOS# 0.06 X1000 (0.0-0.7); EOS% 1.2 % (0.0-10.0); HEMATOCRIT 24.4 % (42.0-52.0); HEMOGLOBIN 7.8 g/dL (14.0-18.0); LYMPH# 0.72 X1000 (1.2-3.4); LYMPH% 13.9 % (20.5-51.1); MCH 33.8 PG (27-31); MCV 105.6 FL (81-99); MONO# 0.87 X1000 (0.11-0.59); MONO% 16.8 % (1.7-9.3); MPV 10.2 FL (7.4-10.4); NEUT# 3.53 X1000 (1.4-6.5); NEUT% 67.9 % (42.2-75.2); PLT 231 X1000 (130-400); RBC 2.31 XMIL (4.7-6.1); RDW 15.3 % (11.5-14.5); WBC 5.19 X1000 (4.8-10.8)
[2019-04-15 20:31] LABS: ALB/GLOB RATIO 1.3; ALBUMIN 2.6 g/dL (3.5-5.0); CALCIUM 8.2 mg/dL (8.8-10.2); CREATININE 1.4 mg/dL (0.7-1.2); MAGNESIUM 1.7 mg/dL (1.5-2.7); POTASSIUM 4.3 mmol/L (3.5-5.1); TOTAL BILIRUBIN 0.29 mg/dL (0.20-1.00); TOTAL PROTEIN 4.6 g/dL (6.3-8.3)
[2019-04-15 20:47] LABS: INR 1.04; PROTIME 13.8 Seconds (11.0-16.0); PTT 36.9 Seconds (22.3-41.8)
[2019-04-15] MEDS ORDERED: VANCOMYCIN 1,500 MG in NS 250 ML IV ONE (21:00)
[2019-04-15] MEDS ORDERED: DOPAMINE 800 MG/D5W 800 MG/500 ML IV.SOLN IV SCH (21:14)
[2019-04-15] MEDS ORDERED: DUONEB (A & A) INH PRN (22:24)
[2019-04-15] MEDS ORDERED: PROTONIX PO ONE (22:27)
[2019-04-15] MEDS ORDERED: NS 1,000 ML IV SCH (22:30)
[2019-04-15] MEDS: DUONEB (A & A) INH SCH ×2 (22:39→23:51)
[2019-04-15] MEDS: LEVAQUIN 500 MG/D5W 500 MG/100 ML IVPB IV SCH (23:43)
[2019-04-16] MEDS: MERREM 500 MG in NS 50 ML IV SCH ×3 (02:24→14:53)
[2019-04-16] MEDS: DUONEB (A & A) INH SCH ×6 (03:14→22:52)
[2019-04-16] MEDS ORDERED: SODIUM CHLORIDE 0.9% INJ SCH (05:15)
[2019-04-16 06:07] LABS: IRON SATURATION 9 %; TIBC 92 ug/dL
[2019-04-16 06:22] LABS: TOTAL IRON 8 ug/dL (53-167); UNBOUND IRON 84 ug/dL (112-346)
--- NOTE | 2019-04-16 06:50 | HISTORY AND PHYSICAL ---
HISTORY OF PRESENT ILLNESS: Mr. Pj Godoy is an 84-year-old male who has a history of admission as well as skin cancer and a resident of [facility]. He was brought out to the hospital via EMS with history of hypertension, fever as well as lethargy. X-ray of the chest done at the time of presentation showed evidence of basilar infiltrate. The patient describes having cough. The patient was started on pressors, IV fluids, and also antibiotics, and sent to intensive care unit for further management. PAST MEDICAL HISTORY: Hypertension, skin cancer, and cirrhosis. PAST SURGICAL HISTORY: Bilateral hip replacement. ALLERGIES: Patient is allergic to penicillin as well as meperidine. SOCIAL HISTORY: The patient is a former smoker. No alcohol or drug use. The patient is a resident of [facility]. MEDICATIONS: His medications include the followin. Acetaminophen 2 tabs p.o. p.r.n. 2. Buspirone 1 tab 3 times a day. 3. Vitamin D 1 tab daily. 4. Doxycycline 1 tab twice a day. 5. Probiotic one capsule daily. 6. Levofloxacin 1 tab daily. 7. Memantine hydrochloride 1 tab twice a day. 8. Midodrine 1 tab 3 times a day. 9. Sodium bicarbonate 1 tab daily. 10. Trazodone 0.5 tabs at bedtime. 11. Triamcinolone acetamide 1 application twice a day. REVIEW OF SYSTEMS: Constitutional: No fever. DROP WIRE ALIGNER: No headaches. Cardiovascular: No chest pain. Respiratory: Has cough. Gastrointestinal: No nausea, vomiting, or diarrhea. : The patient admits to having some prostate issues. Endocrinology: No diabetes or thyroid disease. Psychiatry: Depression. PHYSICAL EXAMINATION: VITAL SIGNS: Temperature 96.9 degrees, pulse 77, respiratory rate 10, blood pressure is 86/50, and oxygen saturation is 99%. HEENT: Atraumatic and normocephalic. He is anicteric. No oral lesions noted. NECK: No lymphadenopathy or thyromegaly. CARDIOVASCULAR: S1, S2. RESPIRATORY: Evidence of good air entry bilaterally. ABDOMEN: Soft, nontender. No masses felt. EXTREMITIES: No evidence of significant edema. CENTRAL NERVOUS SYSTEM: No obvious focal deficits noted. LABORATORY DATA: WBCs 5.19, hematocrit 24.4 with a platelet count of 231,000. INR is 1.04. ABG 7.45/40/186, 98.2%. Sodium is 138, potassium 4.3, chloride is 102, bicarb 27, BUN 22, creatinine is 1.4. Troponin elevated at 0.092. EKG shows normal sinus rhythm with marked sinus arrhythmia with occasional PVCs and low voltage QRS. Chest x-ray shows basilar infiltrates. ASSESSMENT AND PLAN: 1. Septic shock. Maintain patient on intravenous fluids, pressors, IV antibiotics and follow up on cultures. 2. Health care associated pneumonia. Obtain sputum and blood cultures. Start patient on empiric antibiotics. We will use a combination of Merrem, vancomycin as well as Levaquin. 3. Anemia. Check iron studies as well as stool folic acid, and B12 along with stool for occult blood. Follow up on hemoglobin and hematocrit. Transfuse PRBC's as needed. 4. History of hypertension. The patient's blood pressure currently on the low side. 5. History of skin cancer. Aware. 6. Acute kidney injury. Follow up on renal function while on intravenous fluids. Avoid nephrotoxic agent. 7. Deep vein thrombosis prophylaxis. Sequential compression devices. 8. Gastrointestinal prophylaxis. PPI. cc: MD Sergey Bartholomew Jr, MD
[2019-04-16] MEDS: PROTONIX IV SCH (07:00)
[2019-04-16] MEDS: BUSPAR PO SCH ×3 (09:47→17:12)
[2019-04-16] MEDS: NAMENDA PO SCH ×2 (09:47→20:57)
[2019-04-16] MEDS: PROAMATINE PO SCH ×3 (09:48→17:12)
[2019-04-16] MEDS: NS 1,000 ML IV SCH ×3 (11:00→18:02)
--- NOTE | 2019-04-16 11:11 | PROGRESS NOTE ---
DATE: 04/16/2019 SUBJECTIVE: The patient says he feels a little bit better. He had been coughing. He came into the hospital with pneumonia with hypotension. It was thought that he might have septic shock as his systolic blood pressures been down in the 70s and 80s. When he first came in it was 72/46. This morning it is 100/61, pulse 71, he is afebrile with a temperature of 97 degrees Fahrenheit. OBJECTIVE: HEENT: Is normocephalic. EOMs intact. PERRLA. Throat clear. Lungs: Have rales in the bases bilaterally. Heart: Regular rate and rhythm without murmurs, gallops, friction rubs. Abdomen: Soft. Active bowel sounds. No organomegaly or tenderness. Neurologic: Exam intact grossly. Neurological exam, the patient does have confusion from his dementia. LABORATORY: Shows white count of only 5109, hemoglobin 7.8, hematocrit 24.4. Blood gas with 44% FiO2, showed a pCO2 40, PO2 of 186. Lactate was normal at 0.50. Creatinine up at 1.4. Electrolytes essentially normal. Serum iron is low at 8. TIBC was normal at 92. Iron binding capacity low at 84, ferritin 204. Troponin just slightly elevated at 0.092. CK was normal. He is having no chest pain. This could be because his creatinine is up. ASSESSMENT: 1. Bilateral lower lobe pneumonia. 2. Anemia. 3. Questionable gastrointestinal bleed. 4. Iron-deficiency anemia. 5. Hypotension. PLAN: Continue to resuscitate with fluids. We will check stool for blood. We will get gastroenterology to see. A possibility is that he could have had a gastrointestinal bleed. Continue IV antibiotics. cc: Sergey Faulkner Jr, MD
--- NOTE | 2019-04-16 12:31 | GASTROENTEROLOGY PROGRESS NOTE ---
DATE: 04/16/2019 SUBJECTIVE: Mr. Godoy was admitted last night with history of fever, lethargy and hypotension. He was found to be and currently being treated for pneumonia and he is hemodynamically unstable. He is hypotensive suggestive of possible sepsis. During admission, he was found to be anemic as well. However, he is not actively bleeding now. PLAN: From GI point of view, not much to be done as he is not actively bleeding. He does not need any acute or emergent intervention. I would suggest to continue supportive care. Continue PPI as he has already been started. We will follow him peripherally and once he is stable enough for me to proceed with intervention, will do so. Otherwise we will review daily and depending on his progress, further plans will be made. cc: MD Sergey Rocha Jr, MD
[2019-04-16] MEDS: VITAMIN D PO SCH (17:00)
[2019-04-16] MEDS: SODIUM BICARBONATE PO SCH (17:21)
[2019-04-17] MEDS: MERREM 500 MG in NS 50 ML IV SCH ×4 (00:19→23:41)
[2019-04-17] MEDS: LEVAQUIN 500 MG/D5W 500 MG/100 ML IVPB IV SCH ×2 (00:20→23:41)
[2019-04-17] MEDS: NS 1,000 ML IV SCH ×5 (01:02→10:00)
[2019-04-17] MEDS: DUONEB (A & A) INH SCH ×6 (03:35→23:33)
[2019-04-17] MEDS: PROTONIX IV SCH (04:17)
[2019-04-17] MEDS: TYLENOL PO PRN ×2 (05:02→11:39)
[2019-04-17 05:50] LABS: HEMATOCRIT 27.4 % (42.0-52.0); HEMOGLOBIN 8.6 g/dL (14.0-18.0); MCH 32.3 PG (27-31); MCHC 31.4 g/dL (33-37); MPV 10.3 FL (7.4-10.4); RBC 2.66 XMIL (4.7-6.1); WBC 8.82 X1000 (4.8-10.8)
[2019-04-17 06:12] LABS: AGAP 13; BUN 24 mg/dL (8-22); CALCIUM 7.8 mg/dL (8.8-10.2); CHLORIDE 105 mmol/L (98-107); COSMO 280; CREATININE 1.1 mg/dL (0.7-1.2); ESTIMATED GFR > 60; GLUCOSE 112 mg/dL (70-104); SODIUM 138 mmol/L (136-145); TCO2 20 mmol/L (25-35)
--- NOTE | 2019-04-17 07:56 | Diag Imaging Result Doc PS360 ---
CHEST-PORTABLE - 04/17/2019 INDICATION: pneumonia COMPARISON: 04/15/2019 FINDINGS: Stable hazy bibasilar infiltrates. Stable small pleural effusions. The pulmonary vascularity appears normal. Heart size is top normal. IMPRESSION: Hazy bibasilar infiltrates, nonspecific. Probable small pleural effusions. Electronically signed by Kurt Aguilar 04/17/2019 7:53 AM
[2019-04-17] MEDS: BUSPAR PO SCH ×3 (08:14→17:56)
[2019-04-17] MEDS: PROAMATINE PO SCH ×3 (08:14→17:56)
[2019-04-17] MEDS: VITAMIN D PO SCH (08:14)
[2019-04-17] MEDS: SODIUM BICARBONATE PO SCH (08:14)
[2019-04-17] MEDS: NAMENDA PO SCH ×2 (08:14→21:02)
[2019-04-17] MEDS ORDERED: VANCOMYCIN 1 GM/NS 1 GM/250 ML IVPB IV SCH (09:00)
--- NOTE | 2019-04-17 13:52 | PROGRESS NOTE ---
DATE: 04/17/2019 SUBJECTIVE: An 84-year-old white male admitted to the hospital yesterday for pneumonia, anemia, possible sepsis. Interval history was reviewed. Family was at bedside. The patient complains of some arthritic pains requiring Tylenol. Hemoccult was negative. I appreciated Dr. Thornton's consult. PAST MEDICAL HISTORY: Reviewed. PAST SURGICAL HISTORY: Reviewed. ALLERGIES: Penicillin and Demerol. EXAMINATION: Vital Signs: He has a low-grade fever 100, pulse is 79, blood pressure 129/71, 2 L nasal cannula 98%. General: Elderly gentleman, more conversing, not in respiratory distress. HEENT: Exam is slightly pale, no jaundice. Bilateral air entry. Suboptimal exam. Heart: Distant heart sounds. Abdomen: Belly is soft, nontender. Chavira was placed. Extremities: No peripheral edema. Neurologic: No obvious deficits. LABS: White cell count 8.8, hematocrit 27.4, platelet count 254. Sodium 138, potassium 4, chloride 105. BUN 24, creatinine 1.1, glucose 112, calcium 7.8. Iron is low. B 12 normal. Folate is low. Urinalysis is clear. Stool occult negative. Blood cultures were negative. X-RAYS: Chest x-ray with bibasilar infiltrates, small pleural effusions. EKG with sinus rhythm. ASSESSMENT AND PLAN: 1. An 84-year-old white gentleman admitted to the hospital with pneumonia, stable. Currently, the patient is on intravenous vancomycin and Levaquin. 2. Anemia. Heme-negative stool. Continue to monitor. No signs of active gastrointestinal bleed. 3. Folate deficiency and replace the folate. 4. Chronic anxiety on BuSpar, vitamin D 3 and replacement therapy. 5. Dementia on Namenda and meropenem. Incentive spirometry. Continue probiotics and GI prophylaxis with IV Protonix. We will transfer to the floor since he is not taking the vasopressors family agreed upon. Check the labs in the morning and then will adjust antibiotics. LEVEL OF DOCUMENTATION: 35 minutes. cc: MD Sergey Rowe Jr, MD
[2019-04-18] MEDS: DUONEB (A & A) INH SCH ×6 (03:27→22:34)
[2019-04-18] MEDS: PROTONIX IV SCH (06:08)
[2019-04-18] MEDS: MERREM 500 MG in NS 50 ML IV SCH ×3 (06:08→23:25)
[2019-04-18] MEDS: NS 1,000 ML IV SCH (06:36)
[2019-04-18 07:36] LABS: BASO# 0.01 X1000 (0.0-0.2); BASO% 0.1 % (0.0-0.8); EOS# 0.09 X1000 (0.0-0.7); EOS% 1.3 % (0.0-10.0); HEMATOCRIT 25.5 % (42.0-52.0); HEMOGLOBIN 7.9 g/dL (14.0-18.0); IMM GRAN# 0.03 X1000 (0.0-0.04); IMM GRAN% 0.4 % (0.0-0.5); LYMPH# 0.88 X1000 (1.2-3.4); LYMPH% 12.4 % (20.5-51.1); MCH 32.5 PG (27-31); MCV 104.9 FL (81-99); MONO# 0.77 X1000 (0.11-0.59); MONO% 10.8 % (1.7-9.3); MPV 10.6 FL (7.4-10.4); NEUT# 5.33 X1000 (1.4-6.5); PLT 248 X1000 (130-400); RBC 2.43 XMIL (4.7-6.1); RDW 15.2 % (11.5-14.5); WBC 7.11 X1000 (4.8-10.8)
[2019-04-18 07:58] LABS: AGAP 11; BUN 17 mg/dL (8-22); CALCIUM 8.2 mg/dL (8.8-10.2); CHLORIDE 105 mmol/L (98-107); COSMO 276; CREATININE 1.1 mg/dL (0.7-1.2); ESTIMATED GFR > 60; GLUCOSE 107 mg/dL (70-104); POTASSIUM 4.4 mmol/L (3.5-5.1); SODIUM 137 mmol/L (136-145); TCO2 21 mmol/L (25-35)
[2019-04-18] MEDS: CULTURELLE PO SCH (09:26)
[2019-04-18] MEDS: NAMENDA PO SCH ×2 (09:26→20:24)
[2019-04-18] MEDS: VITAMIN D PO SCH (09:26)
[2019-04-18] MEDS: BUSPAR PO SCH ×3 (09:26→17:23)
[2019-04-18] MEDS: PROAMATINE PO SCH ×3 (09:26→17:23)
--- NOTE | 2019-04-18 12:51 | PROGRESS NOTE ---
DATE: 04/18/2019 SUBJECTIVE: The patient moved out of ICU, and a little bit of confusion, sundown affect, hallucinations. The family is at bedside. PHYSICAL EXAMINATION: Vital Signs: Temp is 97.8 degrees, pulse 88, blood pressure is 107/52, saturating 96% on 2 L nasal cannula. HEENT: Within normal limits. Chest: Poor air entry. Heart: Heart sounds are very distant. Abdomen: Belly is soft, nontender. : Chavira was placed. ARCHITECTURAL EXAMINER: No obvious deficits. INVESTIGATIONS: CBC: White cell count 7.1, hematocrit 25, MCV 104, platelets 248,000. Sodium 137, potassium 4.4, chloride 105, BUN 17, creatinine 1.1, glucose 106. Folate is low. B12 is normal. ASSESSMENT AND PLAN: 1. Macrocytic anemia. Hemoccult-negative stool. Will give folic acid 5 mg daily. 2. Pneumonia, treating with Levaquin and meropenem. 3. Hallucinations. Will give Seroquel at bedtime as needed. 4. Gastrointestinal prophylaxis with intravenous Protonix. Followup chest x-ray in the morning, and continue present treatment. LEVEL OF DOCUMENTATION: 25 minutes. cc: MD Sergey Rowe Jr, MD
[2019-04-18] MEDS: FOLIC ACID 5 MG in NS 50 ML IV SCH (15:46)
[2019-04-18] MEDS: SEROQUEL PO SCH (20:24)
[2019-04-18] MEDS: LEVAQUIN 500 MG/D5W 500 MG/100 ML IVPB IV SCH (23:25)
[2019-04-19] MEDS: DUONEB (A & A) INH SCH ×6 (03:05→22:56)
[2019-04-19] MEDS: NS 1,000 ML IV SCH ×2 (05:40→21:24)
[2019-04-19] MEDS: MERREM 500 MG in NS 50 ML IV SCH ×3 (05:41→21:29)
[2019-04-19] MEDS: PROTONIX IV SCH (05:41)
[2019-04-19 07:22] LABS: BASO# 0.01 X1000 (0.0-0.2); BASO% 0.2 % (0.0-0.8); EOS% 1.8 % (0.0-10.0); HEMATOCRIT 26.5 % (42.0-52.0); HEMOGLOBIN 8.6 g/dL (14.0-18.0); IMM GRAN# 0.03 X1000 (0.0-0.04); IMM GRAN% 0.5 % (0.0-0.5); LYMPH% 12.3 % (20.5-51.1); MCH 33.2 PG (27-31); MCHC 32.5 g/dL (33-37); MCV 102.3 FL (81-99); MONO# 0.85 X1000 (0.11-0.59); MONO% 14.9 % (1.7-9.3); MPV 10.4 FL (7.4-10.4); NEUT# 4.01 X1000 (1.4-6.5); NEUT% 70.3 % (42.2-75.2); PLT 254 X1000 (130-400); RBC 2.59 XMIL (4.7-6.1); RDW 14.3 % (11.5-14.5)
--- NOTE | 2019-04-19 07:24 | Diag Imaging Result Doc PS360 ---
EXAM: CHEST-PORTABLE INDICATION: pneumonia TECHNIQUE: One view COMPARISON: 04/17/2019 FINDINGS: Hazy bibasilar infiltrates and small effusions are stable to marginally worse. No other new consolidation is identified. Cardiac silhouette is stable. IMPRESSION: Stable to marginal worsening of bibasilar infiltrates and small effusions. Electronically signed by Bennett Cruz 04/19/2019 7:21 AM
[2019-04-19 07:39] LABS: AGAP 11; BUN 15 mg/dL (8-22); CALCIUM 8.2 mg/dL (8.8-10.2); CHLORIDE 102 mmol/L (98-107); COSMO 276; ESTIMATED GFR > 60; GLUCOSE 84 mg/dL (70-104); POTASSIUM 3.9 mmol/L (3.5-5.1); SODIUM 138 mmol/L (136-145); TCO2 25 mmol/L (25-35)
--- NOTE | 2019-04-19 09:15 | PROGRESS NOTE ---
DATE: 04/19/2019 SUBJECTIVE: The patient looks very stiff. He will answer questions. Says he is not hurting. Does have dementia. OBJECTIVE: Vital Signs: Show blood pressure 123/86, respirations 16, pulse 81, temperature 98.3 degrees Fahrenheit. HEENT: He is normocephalic. EOMs intact. PERRLA. Throat clear. Lungs. Have rales and wheezes in the bases bilaterally. Heart: Regular rate and rhythm without murmurs, gallops, or friction rubs. Abdomen: Soft. Active bowel sounds. No organomegaly or tenderness. Neurological Examination: The patient is stiff. Does not initiate conversation at this time. He is holding his hands clenched and seems very stiff. Laboratory shows white count 5700, hemoglobin 8.6, hematocrit 26.5. Electrolytes essentially normal. Calcium a little low at 8.2. Albumin was low at 2.6 previously and I believe that is the reason his calcium is low. Chest x-ray shows continued bilateral lower lobe infiltrates. ASSESSMENT: 1. Pneumonia. 2. Dementia. 3. Hypoalbuminemia. 4. Hypoproteinemia. 5. Hypocalcemia. 6. Anemia. PLAN: We will continue antibiotics. We will try to get a sputum for culture and Gram stain. We will start physical therapy. GI is following. At some point, he may need a GI workup for his anemia. It is an iron deficiency anemia. His was in the room with him this morning. I talked with her as well. cc: Sergey Faulkner Jr, MD
[2019-04-19] MEDS: NAMENDA PO SCH ×2 (09:47→21:29)
[2019-04-19] MEDS: PROAMATINE PO SCH ×3 (09:47→17:24)
[2019-04-19] MEDS: VITAMIN D PO SCH (09:47)
[2019-04-19] MEDS: BUSPAR PO SCH ×3 (09:48→17:24)
[2019-04-19] MEDS: CULTURELLE PO SCH (09:48)
--- NOTE | 2019-04-19 13:56 | GASTROENTEROLOGY PROGRESS NOTE ---
DATE: 04/19/2019 SUBJECTIVE: The patient was resting with eyes closed. He did arouse easily. His was at the bedside. There has been no evidence of active GI bleeding. Hemoglobin and hematocrit have improved slightly today. OBJECTIVE: Vital Signs: Temperature 98.3 degrees, pulse 81, respirations 16, blood pressure 123/86. LABORATORY: Hematology: WBC 5.70, hemoglobin 8.6, hematocrit 26.5, MCV 102.3, platelets 254,000. Chemistry: Sodium 138, potassium 3.9, chloride 102, CO2 25, BUN 15, creatinine 1.0, glucose 84, calcium 8.2, iron 8, TIBC 92, % saturation 9, ferritin 204. ASSESSMENT AND PLAN: Iron-deficiency anemia. Continue current medications. There has been no evidence of active gastrointestinal bleeding. Would not proceed with endoscopy unless he is having active bleeding or drop in his hemoglobin and hematocrit. We will continue to follow peripherally and once acute issues have improved, he may need GI workup. I have discussed this case with Dr. Thornton. Dictated by AIDA Olivares for Roberto Thornton MD cc: AIDA John MD Roger H. Moss Jr, MD MTDD
[2019-04-19] MEDS: FOLIC ACID 5 MG in NS 50 ML IV SCH (15:46)
[2019-04-19] MEDS ORDERED: SODIUM CHLORIDE 0.9% 10 ML ONE (16:15)
[2019-04-19] MEDS: SEROQUEL PO SCH (21:29)
[2019-04-19] MEDS: LEVAQUIN 500 MG/D5W 500 MG/100 ML IVPB IV SCH (22:16)
[2019-04-20] MEDS: DUONEB (A & A) INH SCH ×5 (03:23→23:28)
[2019-04-20] MEDS: PROTONIX IV SCH (05:33)
[2019-04-20] MEDS: MERREM 500 MG in NS 50 ML IV SCH ×3 (05:33→22:11)
[2019-04-20 07:24] LABS: BASO# 0.01 X1000 (0.0-0.2); BASO% 0.2 % (0.0-0.8); EOS# 0.31 X1000 (0.0-0.7); EOS% 6.3 % (0.0-10.0); HEMATOCRIT 25.4 % (42.0-52.0); HEMOGLOBIN 8.1 g/dL (14.0-18.0); IMM GRAN# 0.02 X1000 (0.0-0.04); IMM GRAN% 0.4 % (0.0-0.5); LYMPH# 0.84 X1000 (1.2-3.4); MCH 32.9 PG (27-31); MCHC 31.9 g/dL (33-37); MCV 103.3 FL (81-99); MONO# 0.72 X1000 (0.11-0.59); MONO% 14.5 % (1.7-9.3); MPV 10.6 FL (7.4-10.4); NEUT# 3.05 X1000 (1.4-6.5); NEUT% 61.6 % (42.2-75.2); PLT 253 X1000 (130-400); RBC 2.46 XMIL (4.7-6.1); RDW 14.3 % (11.5-14.5); WBC 4.95 X1000 (4.8-10.8)
[2019-04-20 07:35] LABS: AGAP 10; BUN 12 mg/dL (8-22); CALCIUM 8.3 mg/dL (8.8-10.2); CHLORIDE 101 mmol/L (98-107); COSMO 274; ESTIMATED GFR > 60; GLUCOSE 110 mg/dL (70-104); POTASSIUM 3.8 mmol/L (3.5-5.1); SODIUM 137 mmol/L (136-145); TCO2 26 mmol/L (25-35)
[2019-04-20] MEDS: CULTURELLE PO SCH (09:12)
[2019-04-20] MEDS: VITAMIN D PO SCH (09:12)
[2019-04-20] MEDS: BUSPAR PO SCH ×3 (09:13→17:09)
[2019-04-20] MEDS: PROAMATINE PO SCH ×3 (09:13→17:09)
[2019-04-20] MEDS: NAMENDA PO SCH ×2 (09:13→22:11)
[2019-04-20] MEDS: TYLENOL PO PRN ×2 (09:17→15:25)
--- NOTE | 2019-04-20 09:51 | PROGRESS NOTE ---
DATE: 04/20/2019 SUBJECTIVE: The patient says he is feeling better, and he does look more alert. OBJECTIVE: Vital Signs: Blood pressure 103/64, respirations 21, pulse 96, temperature 97.6 degrees Fahrenheit. HEENT: Normocephalic. EOMs intact. PERRLA. Throat clear. Lungs: Have a few rales in the right base. Left base sounds clear today. This is an improvement. Heart: Regular rate and rhythm without murmurs, gallops, friction rubs. Abdomen: Soft. Active bowel sounds. No organomegaly or tenderness. Neurological: Intact grossly. ASSESSMENT: 1. Bilateral lower lobe pneumonia, worse on the right. 2. Hypotension, now resolved. 3. Anemia. No active signs of bleeding, but this is an iron deficiency anemia. PLAN: Continue to support trying to get a sputum for Gram stain and culture. We will continue antibiotics and get a chest x-ray tomorrow. GI is following but does not want to do any procedures at this time and I concur. As long as he is not having active bleeding, this can wait until he gets over his pneumonia. LABORATORY: White count 4950, hemoglobin 8.1, hematocrit 25.4. Electrolytes essentially normal. PLAN: Continue care. cc: Sergey Faulkner Jr, MD
[2019-04-20] MEDS: FOLIC ACID 5 MG in NS 50 ML IV SCH (13:06)
[2019-04-20] MEDS: ZYVOX 600 MG/D5W 600 MG/300 ML IVPB IV SCH (14:04)
[2019-04-20] MEDS ORDERED: SODIUM CHLORIDE 0.9% 10 ML ONE (16:10)
[2019-04-20] MEDS: NS 1,000 ML IV SCH (22:01)
[2019-04-20] MEDS: SEROQUEL PO SCH (22:11)
[2019-04-20] MEDS: LEVAQUIN 500 MG/D5W 500 MG/100 ML IVPB IV SCH (23:51)
[2019-04-21] MEDS: ZYVOX 600 MG/D5W 600 MG/300 ML IVPB IV SCH ×2 (03:06→15:10)
[2019-04-21] MEDS: DUONEB (A & A) INH SCH ×6 (03:50→23:38)
[2019-04-21] MEDS: MERREM 500 MG in NS 50 ML IV SCH ×3 (05:43→23:11)
[2019-04-21] MEDS: PROTONIX IV SCH (05:43)
[2019-04-21 07:34] LABS: AGAP 8; BUN 18 mg/dL (8-22); CALCIUM 7.8 mg/dL (8.8-10.2); CHLORIDE 102 mmol/L (98-107); COSMO 272; CREATININE 0.9 mg/dL (0.7-1.2); ESTIMATED GFR > 60; GLUCOSE 92 mg/dL (70-104); POTASSIUM 4.3 mmol/L (3.5-5.1); SODIUM 135 mmol/L (136-145); TCO2 25 mmol/L (25-35)
[2019-04-21 07:58] LABS: BASO# 0.02 X1000 (0.0-0.2); BASO% 0.4 % (0.0-0.8); EOS# 0.32 X1000 (0.0-0.7); EOS% 6.3 % (0.0-10.0); HEMATOCRIT 25.7 % (42.0-52.0); HEMOGLOBIN 8.1 g/dL (14.0-18.0); IMM GRAN# 0.02 X1000 (0.0-0.04); IMM GRAN% 0.4 % (0.0-0.5); LYMPH# 0.61 X1000 (1.2-3.4); MCH 32.8 PG (27-31); MCHC 31.5 g/dL (33-37); MONO# 1.02 X1000 (0.11-0.59); MPV 10.4 FL (7.4-10.4); NEUT# 3.11 X1000 (1.4-6.5); NEUT% 60.9 % (42.2-75.2); PLT 257 X1000 (130-400); RBC 2.47 XMIL (4.7-6.1); RDW 14.2 % (11.5-14.5)
[2019-04-21] MEDS: VITAMIN D PO SCH (09:20)
[2019-04-21] MEDS: PROAMATINE PO SCH ×3 (09:20→17:12)
[2019-04-21] MEDS: NAMENDA PO SCH ×2 (09:20→20:54)
[2019-04-21] MEDS: CULTURELLE PO SCH (09:20)
--- NOTE | 2019-04-21 09:31 | PROGRESS NOTE ---
DATE: 04/21/2019 SUBJECTIVE: The patient is sleepy this morning. He arouses, says he is feeling all right. He falls back off to sleep. OBJECTIVE: Blood pressure 139/59, respirations 21, pulse 68, temp 97.6 degrees Fahrenheit. Oxygen saturation on 3 L is 100%.HEENT: Normocephalic. EOMS intact. PERRLA. Throat clear. Lungs: Have a few wheezes and rales in the bases especially the right base. Heart: Regular rate and rhythm without murmurs, gallops, friction rubs. Abdomen: Soft. Active bowel sounds. No organomegaly or tenderness. Neurological: Intact grossly. White count 5100, hemoglobin 8.0, hematocrit 25.7. Electrolytes essentially normal. I did add Zyvox to his regimen yesterday just in case he had MRSA. Because of that, I did stop his BuSpar. Chest x-ray is pending. Has been done yet this morning. Also has an order for sputum collection for Gram stain and culture. I am not sure they were able to get any. Stool for occult blood was negative. He is still anemic. ASSESSMENT: 1. Bilateral lower lobe pneumonia worse on the right side. 2. Dementia. 3. Anemia which is iron deficient. PLAN: Continue support. We will see what the chest x-ray shows today. cc: Sergey Faulkner Jr, MD
--- NOTE | 2019-04-21 10:34 | Diag Imaging Result Doc PS360 ---
EXAM: CHEST-PORTABLE HISTORY: pneumonia TECHNIQUE: Chest single view COMPARISON: 04/19/2019 FINDINGS: Poor inspiratory effort. There are small bilateral pleural effusions with basilar atelectasis. There may be underlying infiltrates as well. Heart is borderline mildly prominent. IMPRESSION: No interval improvement Electronically signed by Anderson Ralph 04/21/2019 10:32 AM
[2019-04-21] MEDS ORDERED: SODIUM CHLORIDE 0.9% 10 ML ONE (14:56)
[2019-04-21] MEDS: NS 1,000 ML IV SCH (15:10)
[2019-04-21] MEDS: FOLIC ACID 5 MG in NS 50 ML IV SCH (15:10)
[2019-04-21] MEDS: SEROQUEL PO SCH (20:54)
[2019-04-21] MEDS: LEVAQUIN 500 MG/D5W 500 MG/100 ML IVPB IV SCH ×2 (20:54→23:10)
[2019-04-22] MEDS: ZYVOX 600 MG/D5W 600 MG/300 ML IVPB IV SCH ×2 (02:05→14:33)
[2019-04-22] MEDS: PROTONIX IV SCH (05:43)
[2019-04-22] MEDS: MERREM 500 MG in NS 50 ML IV SCH ×2 (05:44→14:33)
[2019-04-22] MEDS: DUONEB (A & A) INH SCH ×5 (07:22→22:51)
[2019-04-22 07:56] LABS: BASO# 0.02 X1000 (0.0-0.2); BASO% 0.4 % (0.0-0.8); EOS# 0.29 X1000 (0.0-0.7); EOS% 6.4 % (0.0-10.0); HEMATOCRIT 24.1 % (42.0-52.0); HEMOGLOBIN 7.4 g/dL (14.0-18.0); IMM GRAN# 0.02 X1000 (0.0-0.04); IMM GRAN% 0.4 % (0.0-0.5); LYMPH# 0.52 X1000 (1.2-3.4); LYMPH% 11.5 % (20.5-51.1); MCHC 30.7 g/dL (33-37); MCV 104.3 FL (81-99); MONO# 0.93 X1000 (0.11-0.59); MONO% 20.5 % (1.7-9.3); MPV 10.5 FL (7.4-10.4); NEUT# 2.76 X1000 (1.4-6.5); NEUT% 60.8 % (42.2-75.2); PLT 258 X1000 (130-400); RBC 2.31 XMIL (4.7-6.1); RDW 13.9 % (11.5-14.5); WBC 4.54 X1000 (4.8-10.8)
[2019-04-22 08:10] LABS: AGAP 9; BUN 15 mg/dL (8-22); CALCIUM 7.9 mg/dL (8.8-10.2); CHLORIDE 103 mmol/L (98-107); COSMO 279; ESTIMATED GFR > 60; GLUCOSE 109 mg/dL (70-104); POTASSIUM 4.3 mmol/L (3.5-5.1); SODIUM 139 mmol/L (136-145); TCO2 27 mmol/L (25-35)
[2019-04-22] MEDS ORDERED: SALINE LOCK IV FLUID XX ONE (08:57)
[2019-04-22] MEDS ORDERED: LASIX IV ONE (08:58)
--- NOTE | 2019-04-22 09:17 | PROGRESS NOTE ---
DATE: 04/22/2019 SUBJECTIVE: The patient says he is feeling better. He is not coughing much. OBJECTIVE: Vital Signs: Blood pressure 102/51, respirations 14, pulse 80, temp 98 degrees Fahrenheit. HEENT: Normocephalic. EOMs intact. PERRLA. Throat clear. Lungs: Have a few rales in the bases bilaterally. Heart: Regular rate and rhythm without murmurs, gallops, friction rubs. Abdomen: Soft. Active bowel sounds. No organomegaly or tenderness. Neurological: Intact grossly, except for her dementia. Extremities: He is more edematous in his sacrum and his right forearm. He may be fluid overloaded slightly. LABORATORY DATA: CBC normal, except for his anemia, which is slightly worse. ASSESSMENT: 1. Pneumonia. 2. Pleural effusions. 3. Dementia. 4. Anemia. PLAN: Will discontinue IV fluids. Will give him Lasix. Will get another chest x-ray this evening. Chest x-ray was read more as pleural effusions rather than infiltrates this time. Will see if this will clear. His was in the room with him this morning, and we talked as well. cc: Sergey Faulkner Jr, MD
[2019-04-22] MEDS: VITAMIN D PO SCH (09:25)
[2019-04-22] MEDS: NAMENDA PO SCH ×2 (09:26→21:53)
[2019-04-22] MEDS: CULTURELLE PO SCH (09:26)
[2019-04-22] MEDS: PROAMATINE PO SCH ×3 (09:26→16:47)
--- NOTE | 2019-04-22 09:48 | Diag Imaging Result Doc PS360 ---
EXAM: CHEST-1 VIEW 04/22/2019 HISTORY: pleural eff TECHNIQUE: AP portable upright at 0939 COMMENT: There are bilateral pleural effusions. There is hazy opacity over both lung bases. There are skinfolds over the left chest. Compared to 04/21/2019 the volume of pleural fluid may be slightly increased on the right side. IMPRESSION: Bilateral pleural effusions. Pulmonary edema. Electronically signed by Mikhail Adams 04/22/2019 9:46 AM
[2019-04-22] MEDS: TYLENOL PO PRN (12:41)
[2019-04-22] MEDS: FOLIC ACID 5 MG in NS 50 ML IV SCH (14:33)
[2019-04-22] MEDS: SEROQUEL PO SCH (21:53)
[2019-04-22] MEDS: LEVAQUIN 500 MG/D5W 500 MG/100 ML IVPB IV SCH (21:54)
[2019-04-23] MEDS: MERREM 500 MG in NS 50 ML IV SCH ×4 (01:07→22:11)
[2019-04-23] MEDS: DUONEB (A & A) INH SCH ×6 (03:30→23:53)
[2019-04-23] MEDS: ZYVOX 600 MG/D5W 600 MG/300 ML IVPB IV SCH ×2 (04:42→17:51)
[2019-04-23] MEDS: PROTONIX PO SCH (06:43)
[2019-04-23 07:38] LABS: AGAP 9; BASO# 0.01 X1000 (0.0-0.2); BASO% 0.2 % (0.0-0.8); BUN 18 mg/dL (8-22); CALCIUM 7.8 mg/dL (8.8-10.2); CHLORIDE 100 mmol/L (98-107); COSMO 274; CREATININE 1.1 mg/dL (0.7-1.2); EOS# 0.29 X1000 (0.0-0.7); EOS% 6.7 % (0.0-10.0); ESTIMATED GFR > 60; GLUCOSE 104 mg/dL (70-104); HEMATOCRIT 23.7 % (42.0-52.0); HEMOGLOBIN 7.3 g/dL (14.0-18.0); IMM GRAN# 0.03 X1000 (0.0-0.04); IMM GRAN% 0.7 % (0.0-0.5); LYMPH# 0.68 X1000 (1.2-3.4); LYMPH% 15.6 % (20.5-51.1); MCH 32.2 PG (27-31); MCHC 30.8 g/dL (33-37); MCV 104.4 FL (81-99); MONO# 0.87 X1000 (0.11-0.59); MPV 10.3 FL (7.4-10.4); NEUT# 2.47 X1000 (1.4-6.5); NEUT% 56.8 % (42.2-75.2); PLT 273 X1000 (130-400); POTASSIUM 4.1 mmol/L (3.5-5.1); RBC 2.27 XMIL (4.7-6.1); RDW 13.7 % (11.5-14.5); SODIUM 136 mmol/L (136-145); TCO2 27 mmol/L (25-35); WBC 4.35 X1000 (4.8-10.8)
[2019-04-23] MEDS ORDERED: ALBUMIN 25% IV ONE (08:34)
[2019-04-23] MEDS ORDERED: NS 500 ML IV ONE (08:35)
--- NOTE | 2019-04-23 09:05 | PROGRESS NOTE ---
DATE: 04/23/2019 SUBJECTIVE: The patient says he feels better. He is not coughing as much. OBJECTIVE: Vital Signs: Blood pressure 136/56, respirations 16 and regular, pulse 58 and regular, 97.4 degrees Fahrenheit. Oxygen saturations 93% on room air. HEENT: Normocephalic. EOMs intact. PERRLA. Throat clear. Lungs: Have rales in the bases bilaterally. Heart: Regular rate and rhythm without murmurs, gallops, friction rubs. Abdomen: Soft. Active bowel sounds. No organomegaly or tenderness. Neurological: Intact grossly. Skin: Still has some swelling on his sacrum and his right arm. DIAGNOSTIC DATA: His albumin was low at 2.2. His hemoglobin has dropped to 7.3 with hematocrit 23.7. Creatinine is 1.1. BUN is 27. ASSESSMENT: 1. Bilateral pneumonia. 2. Bilateral pleural effusions. 3. Dementia. 4. Anemia. PLAN: We will give 1 unit of packed red blood cells. We will give albumin IV. We will start Lasix 40 mg q.a.m. We will check another chest x-ray and albumin level tomorrow. We will continue with CBC serially. cc: Sergey Faulkner Jr, MD
[2019-04-23] MEDS: VITAMIN D PO SCH (10:45)
[2019-04-23] MEDS: PROAMATINE PO SCH ×3 (10:45→17:04)
[2019-04-23] MEDS: CULTURELLE PO SCH (10:45)
[2019-04-23] MEDS: NAMENDA PO SCH ×2 (10:45→20:28)
[2019-04-23] MEDS: FOLIC ACID 5 MG in NS 50 ML IV SCH (13:39)
[2019-04-23] MEDS ORDERED: NS 500 ML ONE (13:57)
[2019-04-23] MEDS: LASIX IV SCH (14:25)
[2019-04-23] MEDS: SEROQUEL PO SCH (20:28)
[2019-04-23] MEDS: LEVAQUIN 500 MG/D5W 500 MG/100 ML IVPB IV SCH (22:11)
[2019-04-24] MEDS: ZYVOX 600 MG/D5W 600 MG/300 ML IVPB IV SCH ×2 (02:17→16:03)
[2019-04-24] MEDS: DUONEB (A & A) INH SCH ×6 (03:30→23:22)
[2019-04-24] MEDS: MERREM 500 MG in NS 50 ML IV SCH ×3 (06:03→23:31)
[2019-04-24 07:42] LABS: BASO# 0.01 X1000 (0.0-0.2); BASO% 0.2 % (0.0-0.8); EOS# 0.29 X1000 (0.0-0.7); EOS% 6.5 % (0.0-10.0); HEMATOCRIT 27.7 % (42.0-52.0); HEMOGLOBIN 8.8 g/dL (14.0-18.0); IMM GRAN# 0.03 X1000 (0.0-0.04); IMM GRAN% 0.7 % (0.0-0.5); LYMPH# 0.46 X1000 (1.2-3.4); LYMPH% 10.4 % (20.5-51.1); MCH 32.1 PG (27-31); MCHC 31.8 g/dL (33-37); MCV 101.1 FL (81-99); MONO# 0.84 X1000 (0.11-0.59); NEUT% 63.2 % (42.2-75.2); PLT 275 X1000 (130-400); RBC 2.74 XMIL (4.7-6.1); RDW 14.6 % (11.5-14.5); WBC 4.43 X1000 (4.8-10.8)
[2019-04-24 07:53] LABS: AGAP 12; BUN 19 mg/dL (8-22); CHLORIDE 98 mmol/L (98-107); COSMO 276; CREATININE 1.1 mg/dL (0.7-1.2); ESTIMATED GFR > 60; GLUCOSE 99 mg/dL (70-104); POTASSIUM 4.2 mmol/L (3.5-5.1); SODIUM 137 mmol/L (136-145); TCO2 27 mmol/L (25-35)
[2019-04-24] MEDS: CULTURELLE PO SCH (09:43)
[2019-04-24] MEDS: PROAMATINE PO SCH ×3 (09:43→16:04)
[2019-04-24] MEDS: VITAMIN D PO SCH (09:43)
[2019-04-24] MEDS: NAMENDA PO SCH ×3 (09:43→21:00)
[2019-04-24] MEDS: PROTONIX PO SCH (09:44)
[2019-04-24] MEDS: LASIX IV SCH (09:44)
--- NOTE | 2019-04-24 13:52 | PROGRESS NOTE ---
DATE: 04/24/2019 Mr. Godoy is an 84-year-old white gentleman with dementia, bilateral pneumonia, and bilateral pleural effusion. He is being treated with IV linezolid 600 mg b.i.d. and IV Levaquin. His lungs sound somewhat better. We will repeat the chest x-ray tomorrow. His white count was 4.43, hemoglobin 8.8, hematocrit 27.7. Electrolytes are normal. His calcium has gone up from 7.8 to 8. Overall condition is stable. Vital signs are stable except the blood pressure was slightly low it was 96/46. Will repeat the chest x-ray in the morning. -5 cc: MD Sergey Hollis Jr, MD
[2019-04-24] MEDS: FOLIC ACID 5 MG in NS 50 ML IV SCH (16:01)
--- NOTE | 2019-04-24 16:35 | Diag Imaging Result Doc PS360 ---
EXAM: CHEST-2 VIEWS 04/24/2019 HISTORY: pleural eff TECHNIQUE: PA and lateral chest COMMENT: There are bilateral pleural effusions. Compared to the previous study of 05/12/2019 has been some improvement in the hazy pulmonary opacities over the lower lobes.. IMPRESSION: Bilateral pleural effusions. Improved pulmonary edema. Electronically signed by Mikhail Adams 04/24/2019 4:33 PM
[2019-04-24] MEDS: SEROQUEL PO SCH ×2 (19:55→21:00)
[2019-04-24] MEDS ORDERED: QUESTRAN PO SCH (21:00)
[2019-04-24] MEDS: LEVAQUIN 500 MG/D5W 500 MG/100 ML IVPB IV SCH (22:15)
[2019-04-25] MEDS: ZYVOX 600 MG/D5W 600 MG/300 ML IVPB IV SCH ×2 (02:52→15:19)
[2019-04-25] MEDS: DUONEB (A & A) INH SCH ×6 (03:35→23:12)
[2019-04-25] MEDS: PROTONIX PO SCH ×2 (05:56→06:00)
[2019-04-25 07:51] LABS: BASO# 0.01 X1000 (0.0-0.2); BASO% 0.2 % (0.0-0.8); EOS# 0.26 X1000 (0.0-0.7); EOS% 5.9 % (0.0-10.0); HEMOGLOBIN 9.2 g/dL (14.0-18.0); LYMPH# 0.66 X1000 (1.2-3.4); MCH 32.3 PG (27-31); MCHC 31.7 g/dL (33-37); MCV 101.8 FL (81-99); MONO# 0.74 X1000 (0.11-0.59); MONO% 16.9 % (1.7-9.3); NEUT# 2.72 X1000 (1.4-6.5); PLT 285 X1000 (130-400); RBC 2.85 XMIL (4.7-6.1); RDW 13.9 % (11.5-14.5); WBC 4.39 X1000 (4.8-10.8)
[2019-04-25 08:08] LABS: CALCIUM 8.4 mg/dL (8.8-10.2); CREATININE 1.2 mg/dL (0.7-1.2); POTASSIUM 4.6 mmol/L (3.5-5.1)
--- NOTE | 2019-04-25 08:56 | Diag Imaging Result Doc PS360 ---
EXAM: CHEST-2 VIEWS 04/25/2019 HISTORY: pneumonia follow up TECHNIQUE: AP and lateral sitting chest COMMENT: There are bilateral pleural fluid collections. The appearance of the chest has not changed significantly since the previous study of 04/24/2019. There continues to be atelectasis versus pneumonia in both lower lobes. IMPRESSION: Bilateral pleural effusions and basilar atelectasis. Electronically signed by Mikhail Adams 04/25/2019 8:54 AM
[2019-04-25] MEDS: MERREM 500 MG in NS 50 ML IV SCH ×2 (09:06→17:22)
[2019-04-25] MEDS: VITAMIN D PO SCH (09:07)
[2019-04-25] MEDS: CULTURELLE PO SCH (09:07)
[2019-04-25] MEDS: PROAMATINE PO SCH ×3 (09:07→17:24)
[2019-04-25] MEDS: LASIX IV SCH (09:07)
[2019-04-25] MEDS: NAMENDA PO SCH ×2 (09:07→21:34)
[2019-04-25] MEDS ORDERED: IMODIUM PO ONE (10:38)
--- NOTE | 2019-04-25 11:20 | PROGRESS NOTE ---
DATE: 04/25/2019 Mr. Godoy is still complaining about severe pain in the right arm as well as the right elbow. He has contractures of the fingers in the right hand. His repeat chest x-ray does not show much improvement, but it shows bilateral basilar atelectasis and pleural effusion. His vital signs are stable. So far, his cultures are negative. CBC shows white count of 4.39, hemoglobin 9.2, hematocrit 29. Electrolytes are normal. He has some diarrhea. We will check the stool for Clostridium difficile. -7 cc: MD Sergey Hollis Jr, MD
[2019-04-25] MEDS: FOLIC ACID 5 MG in NS 50 ML IV SCH (15:18)
[2019-04-25] MEDS ORDERED: NS 500 ML ONE (15:47)
[2019-04-25] MEDS: SEROQUEL PO SCH (21:33)
[2019-04-25] MEDS: LEVAQUIN 500 MG/D5W 500 MG/100 ML IVPB IV SCH (21:34)
[2019-04-25] MEDS: TYLENOL PO PRN (21:53)
[2019-04-26] MEDS: MERREM 500 MG in NS 50 ML IV SCH ×3 (00:15→15:26)
[2019-04-26] MEDS: ZYVOX 600 MG/D5W 600 MG/300 ML IVPB IV SCH ×2 (03:35→15:26)
[2019-04-26] MEDS: DUONEB (A & A) INH SCH ×6 (03:54→23:04)
[2019-04-26] MEDS ORDERED: ALBUMIN 25% IV ONE (06:08)
[2019-04-26] MEDS: TYLENOL PO PRN (06:16)
[2019-04-26] MEDS: PROTONIX PO SCH (06:16)
[2019-04-26] MEDS: NAMENDA PO SCH ×2 (08:25→21:10)
[2019-04-26] MEDS: CULTURELLE PO SCH (08:25)
[2019-04-26] MEDS: VITAMIN D PO SCH (08:25)
[2019-04-26] MEDS: LASIX IV SCH (08:26)
[2019-04-26] MEDS: PROAMATINE PO SCH ×3 (08:26→16:07)
--- NOTE | 2019-04-26 09:09 | PROGRESS NOTE ---
DATE: 04/26/2019 SUBJECTIVE: The patient says he feels pretty well. He has not been coughing as much. Has been having some diarrhea. Check for Clostridium difficile has been ordered, but not collected yet. OBJECTIVE: Vital Signs: Blood pressure is 115/28, respirations 15, pulse 64, temperature 98.2 degrees Fahrenheit, oxygen saturation on 3 L is 94%. HEENT: Normocephalic. EOMs intact. PERRLA. Throat clear. Lungs: Few rales in the bases bilaterally, and they sound a little dull. Heart: Regular rate and rhythm without murmurs, gallops, friction rubs. Abdomen: Soft. Active bowel sounds. No organomegaly or tenderness. Neurological: Intact grossly, except for he has dementia. He does have contractures in both hands, worse on the right than the left. The family tells me he developed this while he was in rehab, and that they had supposed that it might have been from an injury when he has had some of his falls. I would wonder whether it maybe could have been a CVA, but it is bilateral, which would be unusual. There is some question about whether he had hurt his shoulder or not. ASSESSMENT: 1. Bilateral lower lobe pneumonia. 2. Pleural effusions. 3. Low albumin, now replaced. 4. Dementia. 5. Contractures. 6. Rule out congestive heart failure. 7. Diarrhea. Could be from antibiotics or possibly Clostridium difficile. PLAN: Will get stool to check for Clostridium difficile. Will ask Orthopedics to see him about the contractures. Will get an echocardiogram and a proBNP. Will continue Lasix. Will supplement with albumin. His last albumin was 2.6, before that it was 2.2, and then I gave him some albumin. The patient says he does not want any new surgeries. Will get a chest x-ray tomorrow. cc: Sergey Faulkner Jr, MD
[2019-04-26] MEDS: FOLIC ACID 5 MG in NS 50 ML IV SCH (13:42)
--- NOTE | 2019-04-26 17:28 | Diag Imaging Result Doc PS360 ---
EXAM: HAND COMPLETE RIGHT - 04/26/2019 HISTORY: contractures TECHNIQUE: Right hand three views COMPARISON: None. FINDINGS: There are flexion contractures at multiple metacarpophalangeal and interphalangeal joints. There are severe osteoarthritic changes. There are no erosions identified. There is no fracture or dislocation identified. 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 Severe osteoarthritic changes. Electronically signed by Eric Ayoub 04/26/2019 5:26 PM
--- NOTE | 2019-04-26 17:29 | Diag Imaging Result Doc PS360 ---
EXAM: HAND COMPLETE LEFT - 04/26/2019 HISTORY: Contractures TECHNIQUE: Left hand three views COMPARISON: None. FINDINGS: There are apparent flexion contractures at the PIP joints of the index and middle fingers. There are severe osteoarthritic changes. There are no discrete erosions identified. There is subluxation at the first metacarpal phalangeal joint which may be long-standing. There is no fracture or dislocation identified. IMPRESSION: Apparent flexion contractures at PIP joints of index and middle fingers. Severe osteoarthritic changes. Electronically signed by Eric Ayoub 04/26/2019 5:27 PM
--- NOTE | 2019-04-26 19:31 | ECHO REPORT ---
ORDER DATE: 04/26/2019 INDICATION: CHF. Pleural effusion. The study was technically difficulty. M-MODE MEASUREMENTS: Left ventricle end diastole: 3.5 cm. Left ventricle end systole: 3.1 cm. Posterior wall: 0.8 cm. Interventricular septum: 0.8 cm. Left atrium: 3.3 cm. Aortic diameter: 3.4 cm. SUMMARY OF 2-DIMENSIONAL IMAGIN. The left ventricular function appears to be borderline decreased to lower limits of normal, somewhere in the range of 50% to 55%. The study is difficult. 2. The right ventricle appears to be slightly prominent. 3. The tricuspid valve shows a moderate degree of regurgitation. 4. Pulmonary pressure is probably borderline elevated. 5. The mitral valve shows a mild degree of regurgitation. 6. The pulsed wave Doppler of mitral inflow shows mild reversal of the E and the A ratio. Ratio is 0.8. 7. Tissue Doppler of septal and lateral mitral annulus averages 10 cm. 8. The aortic valve looks normal. Color flow mapping is unremarkable. 9. The pulmonic valve was not well visualized. 10.The right atrium is not dilated. There is some thickening of the wall of the right atrium, however it appears to be artifactual. 11.There is a question of a pleural effusion. 12.The inferior vena cava is not dilated. 13.There is trivial degree of aortic regurgitation. Clinical correlation is recommended. cc: MD Sergey More Jr, MD
--- NOTE | 2019-04-26 20:13 | ORTHOPAEDICS CONSULTATION ---
DATE: 04/26/2019 REASON FOR CONSULTATION: Right and left hand contractures. HISTORY OF PRESENT ILLNESS: Mr. Pj Godoy is an 84-year-old male who has a history of hypertension, cirrhosis and arthritis, who presented to the [facility] Emergency Room via EMS with fever and lethargy. He is a resident of [facility] where he is not very ambulatory. A chest x-ray on time of arrival showed a basilar infiltrate. At the time of his admission, he actually required pressors, IV fluids, antibiotics, and was admitted to the ICU. Currently, he is on 3 North. He states he is feeling much better. He initially had some complaints of right shoulder and elbow pain. He states this is better. He does also report contractures of the right and left hand. He states this has been like this for some time. The says that they have gotten much worse over the last couple of weeks. Orthopedics has been consulted for management of the contractions. PAST MEDICAL HISTORY: 1. Primary essential hypertension. 2. Cirrhosis. 3. Arthritis. 4. Skin cancer. PAST SURGICAL HISTORY: Bilateral hip replacement. ALLERGIES: Penicillin. SOCIAL HISTORY: The patient is a past smoker. Denies alcohol or illicit drug use. He is a resident of [facility]. HOME MEDICATIONS: 1. Acetaminophen 2 tabs p.o. p.r.n. 2. Buspirone 1 tab 3 times daily. 3. Vitamin D 1 tab daily. 4. Doxycycline 1 tab twice a day. 5. Probiotic. 6. Levaquin 1 tab daily. 7. Trazodone 0.5 tabs at bedtime. REVIEW OF SYSTEMS: A 10 point review of systems was completed and negative except for what is mentioned above in HPI. PHYSICAL EXAMINATION: Vital Signs: Temperature is 98.2 degrees, pulse is 58, respirations 16. He is 91% on 3 L nasal cannula. General: This is an 84-year-old male in no acute distress. Neurological: He is alert and oriented to person and place. He answers most questions appropriately. HEENT: Head is atraumatic, normocephalic. Pupils are equal, round, reactive to light. Cardiovascular: Regular rate and rhythm. Pulmonary: Breathing is even and nonlabored with equal chest expansion. Abdomen: Appears nondistended. Extremities: He has no tenderness to palpation to any extremity. His hands on the right side is contracted. He is not able to extend the fingers. I can manually manipulate them some. He does have good sensation to the fingers. There is no skin ulcerations or abrasions. On the left hand, he is unable to flex the fingers. They are contracted in extension. Those are a little bit more stiff and I have more difficulty move those. He does have good sensation to the fingers. ASSESSMENT: Bilateral hand contractures. PLAN: Mr. Godoy is against any type of surgical intervention for the hands. He states they have been like this for quite some time. He says he has been unable to use them for several months. The is at the bedside. She states it has actually gotten much worse over the last couple weeks. She would like to discuss some surgical options for him. For now, we will plan on doing occupational therapy to try and help him regain some of that function. Dr. Young will be by to discuss further options with him later this afternoon. I will go ahead and order physical therapy and further treatment will depend what the patient and his decide to do. Dictated by AIDA Larson for Palomo Young MD cc: AIDA Larson Jr, MD MTDD
[2019-04-26] MEDS: LEVAQUIN 500 MG/D5W 500 MG/100 ML IVPB IV SCH (21:10)
[2019-04-26] MEDS: SEROQUEL PO SCH (21:10)
[2019-04-27] MEDS: MERREM 500 MG in NS 50 ML IV SCH (00:59)
[2019-04-27] MEDS: LEVAQUIN 500 MG/D5W 500 MG/100 ML IVPB IV SCH (03:16)
[2019-04-27] MEDS: DUONEB (A & A) INH SCH ×6 (03:42→23:11)
[2019-04-27] MEDS: PROTONIX PO SCH (06:16)
--- NOTE | 2019-04-27 07:34 | Diag Imaging Result Doc PS360 ---
EXAM: CHEST-PORTABLE INDICATION: pleural effusion TECHNIQUE: One view COMPARISON: 04/25/2019 FINDINGS: There is better inspiration. There is essentially stable mild blunting of the costophrenic angle suggesting likely trace effusions. No new consolidation is identified. Cardiac silhouette is stable. IMPRESSION: Better inspiratory effort. Stable chest, otherwise. Electronically signed by Bennett Cruz 04/27/2019 7:31 AM
--- NOTE | 2019-04-27 08:08 | ORTHOPAEDICS PROGRESS NOTE ---
DATE: 04/26/2019 SUBJECTIVE: Please see the orthopedic consultation note for full details of History of present illness. The patient is an 84-year-old gentleman who presented to [facility] with fever, and is currently being treated for pleural effusion and pneumonia. We are consulted to evaluate bilateral hand contractures. Patient states his right hand contractures have been going on for several months. However, he is unable to give an exact time. He states he will get intermittent shooting episodes of pain and muscle contractions in his hands. He states his left hand has also started to do this, however, not as bad. He has not had any treatment for this in the past. He is right-hand dominant. OBJECTIVE: Examination of bilateral hands shows skin intact. Patient has significant ulnar deviation of his MCP joints bilaterally, worse on the right than the left. He has arthritic changes of his hands bilaterally as well. His right hand is held in a clinched fist. With a gentle constant pressure, I am able to extend his digits fully at the PIP and DIP joint. He lacks about 40 degrees of flexion at his MCP joints. He has no palpable cords which would be consistent with Dupuytren's. Sensation is intact in the right hand and radial, ulnar, median, and axillary nerve distribution. Examination of left hand shows skin intact. The patient is able to actively extend the left hand and make a fist. He does have an episode of painful contraction of his flexors causing him to make a clinched fist. Motor intact in AIN, PIN, and ulnar nerve distribution. Sensation intact to light touch to median, radial, ulnar, and axillary nerves. Radial pulse palpable and equal bilaterally. IMAGING: AP, lateral, and oblique views of bilateral hands were reviewed demonstrating no fracture or dislocation. Patient has significant arthritic changes with no signs of erosions of his joints. ASSESSMENT: An 84-year-old male with bilateral hand osteoarthritis and intermittent muscle contractures that are passively correctable especially on the left hand. PLAN: A long discussion was had with patient regarding diagnosis and treatment options. I agree with the plan and Kesha Ambrosio's consultation note. We will plan on treating this conservatively initially. We will have occupational therapy work with him on possible bracing, and stretching modalities. The patient is not interested in having any type of surgical intervention at this time. I gave him one of my business cards, and will have him follow up as an outpatient once he gets over his pneumonia and discharge from the hospital. Once he is discharged, we can set up outpatient physical and occupational therapy. All questions were answered. Patient is in agreement with the above plan. Thank you for the consultation. cc: Sergey Faulkner Jr, MD
[2019-04-27 08:13] LABS: BASO# 0.02 X1000 (0.0-0.2); BASO% 0.4 % (0.0-0.8); EOS# 0.23 X1000 (0.0-0.7); HEMOGLOBIN 8.8 g/dL (14.0-18.0); LYMPH# 0.61 X1000 (1.2-3.4); LYMPH% 13.2 % (20.5-51.1); MCH 31.9 PG (27-31); MCHC 31.4 g/dL (33-37); MCV 101.4 FL (81-99); MONO# 0.67 X1000 (0.11-0.59); MONO% 14.5 % (1.7-9.3); NEUT% 66.9 % (42.2-75.2); PLT 309 X1000 (130-400); RBC 2.76 XMIL (4.7-6.1); WBC 4.63 X1000 (4.8-10.8)
[2019-04-27 08:47] LABS: ALB/GLOB RATIO 1.3; ALBUMIN 2.9 g/dL (3.5-5.0); CALCIUM 8.2 mg/dL (8.8-10.2); CREATININE 1.5 mg/dL (0.7-1.2); POTASSIUM 4.2 mmol/L (3.5-5.1); TOTAL BILIRUBIN 0.29 mg/dL (0.20-1.00); TOTAL PROTEIN 5.2 g/dL (6.3-8.3)
[2019-04-27] MEDS: LEVAQUIN PO SCH (09:12)
[2019-04-27] MEDS: PROAMATINE PO SCH ×3 (09:12→17:58)
[2019-04-27] MEDS: NAMENDA PO SCH ×2 (09:12→20:54)
[2019-04-27] MEDS: VITAMIN D PO SCH (09:13)
[2019-04-27] MEDS: LASIX IV SCH (09:13)
[2019-04-27] MEDS: CULTURELLE PO SCH (09:13)
--- NOTE | 2019-04-27 11:17 | PROGRESS NOTE ---
DATE: 04/27/2019 SUBJECTIVE: The patient seems to be feeling better. Chest x-ray shows just mild blunting of the costophrenic angles. I believe the pneumonia has about cleared. His pleural effusions are better since he has had albumin and Lasix. Echocardiogram shows an EF of 50 to 55 percent. ProBNP was around 1000. I do not really think he is in heart failure. He has been evaluated by Dr. Young, orthopedics, who feels like his contractures are probably chronic and recommended physical therapy. Did not recommend any surgeries at this time. OBJECTIVE: Vital Signs: Blood pressure 126/111. I doubt the 111 is accurate. Earlier, the diastolic number was 49. Respirations 22, earlier were 18. Temperature 97.6 degrees Fahrenheit. HEENT: Normocephalic. EOMs intact. PERRLA. Throat clear. Lungs: Clear to auscultation and percussion without rhonchi, rales, or wheezes. Heart: Regular rate and rhythm without murmurs, gallops, or friction rubs. Abdomen: Soft. Active bowel sounds. No organomegaly or tenderness. Neurological: Examination intact grossly. ASSESSMENT: 1. Bilateral pneumonia. 2. Bilateral pleural effusions. 3. Dementia. 4. Hypoalbuminemia. 5. Anemia. 6. Contractures. PLAN: I am going to change him from IV antibiotics over to oral antibiotics. If there is no fever tomorrow, we will send him back to [facility] if a bed is available. cc: Sergey Faulkner Jr, MD
[2019-04-27] MEDS: FOLIC ACID 5 MG in NS 50 ML IV SCH (13:49)
[2019-04-27] MEDS: SEROQUEL PO SCH (20:54)
[2019-04-28] MEDS ORDERED: CALMOSEPTINE OINTMENT TOP PRN (00:54)
[2019-04-28] MEDS: DUONEB (A & A) INH SCH ×4 (03:33→15:06)
[2019-04-28] MEDS: PROTONIX PO SCH ×2 (05:07→06:33)
[2019-04-28] MEDS: TYLENOL PO PRN (05:07)
[2019-04-28 08:15] LABS: ALB/GLOB RATIO 1.1; CALCIUM 8.4 mg/dL (8.8-10.2); CREATININE 1.4 mg/dL (0.7-1.2); TOTAL BILIRUBIN 0.49 mg/dL (0.20-1.00); TOTAL PROTEIN 5.7 g/dL (6.3-8.3)
[2019-04-28 08:17] VITALS: BP 115/67
[2019-04-28 08:27] LABS: BASO# 0.05 X1000 (0.0-0.2); BASO% 0.8 % (0.0-0.8); EOS# 0.24 X1000 (0.0-0.7); EOS% 4.1 % (0.0-10.0); HEMATOCRIT 29.2 % (42.0-52.0); HEMOGLOBIN 9.3 g/dL (14.0-18.0); LYMPH# 0.66 X1000 (1.2-3.4); LYMPH% 11.2 % (20.5-51.1); MCH 32.2 PG (27-31); MCHC 31.8 g/dL (33-37); MONO# 0.75 X1000 (0.11-0.59); MONO% 12.7 % (1.7-9.3); MPV 9.8 FL (7.4-10.4); NEUT% 71.2 % (42.2-75.2); PLT 308 X1000 (130-400); RBC 2.89 XMIL (4.7-6.1); RDW 13.1 % (11.5-14.5)
[2019-04-28] MEDS: LEVAQUIN PO SCH (09:30)
[2019-04-28] MEDS: VITAMIN D PO SCH (09:30)
[2019-04-28] MEDS: NAMENDA PO SCH (09:30)
[2019-04-28] MEDS: CULTURELLE PO SCH (09:30)
[2019-04-28] MEDS: PROAMATINE PO SCH (09:30)
[2019-04-28] MEDS: LASIX IV SCH (09:30)
--- NOTE | 2019-04-28 11:16 | DISCHARGE SUMMARY ---
ADMISSION DATE: 04/15/2019 DISCHARGE DATE: 04/28/2019 FINAL DIAGNOSES: 1. Bilateral lower lobe pneumonia, bacterial. 2. Bilateral pleural effusions, resolved. 3. Dementia. 4. Hypotension. 5. Anemia. 6. Acute kidney injury. CONSULTATIONS: Consultations were made with Dr. Young and Dr. Thornton. HISTORY OF PRESENT ILLNESS: The patient presented as an 84-year-old from intermediate dementia care unit with bilateral pneumonia and hypotension, thought might have septic shock, but blood pressure did come back up with resuscitation. He was anemic as well, but found no source of bleeding. We did consult GI. GI felt like he was too frail at this time to do any workup, and wanted to see him back later as an outpatient. The patient also had contractures of his hands. Dr. Young saw him, and will see him later as an outpatient, and wanted to start him on physical therapy. I did give him 1 unit of blood while he was in the hospital, and his hemoglobin has remained somewhat low, but stable. Blood pressures did come back up. It may have been that he was just dehydrated. He did develop a little diarrhea while he was in the hospital, but then that ceased. We were unable to collect for a check of Clostridium difficile, but since the diarrhea went away, I doubt that he has Clostridium difficile. His hemoglobin on discharge is 9.3, hematocrit 29.2. I have explained to the family that this could be anemia of chronic disease, it could have been a GI bleed that has ceased, there could be bone marrow problems, or it could be from his renal failure. His creatinine has been up as high as 1.5. The patient does not want any more surgeries. He was a no code blue level 1. We will be easy with him as he is frail, but his pneumonia has resolved. I do not think he needs any more antibiotics at this time. His pleural effusions have gone away. I did treat him with some Lasix initially. He also had a low albumin, which has improved. The last one was 3.0. This is probably dietary and from his dementia, just not eating as well. Will encourage protein ingestion. PHYSICAL EXAMINATION: Vital Signs: Stable. HEENT: He is normocephalic. EOMS intact. PERRLA. Throat clear. Lungs: Clear to auscultation and percussion, without rhonchi, rales, or wheezes. Pneumonia has resolved on chest x-ray. Heart: Regular rate and rhythm, without murmurs, gallops, or friction rubs. Abdomen: Soft. Active bowel sounds. No organomegaly or tenderness. Neurologic: Intact grossly. The patient is demented and does not remember everything, but he is alert and carries on a conversation. He seems much better, much brighter. Blood pressure is stable. He does have contractures of both hands, worse on the right than the left. Will continue with physical therapy for that. Will check lab work again in a couple of weeks. Will make sure he has followups with Dr. Thornton and Dr. Young. He will be going to [facility]. cc: Sergey Faulkner Jr, MD
== END 2019-04-28 15:55 | DRG 193 ==
LOC: ED 19:25 → SUATTDRO 23:01 → ICU 23:01 → SUPCPDRO 23:01 → 3N 04-17 14:04
PROVIDERS: ADMIT Emergency Medicine; ATTEND Emergency Medicine

== ENCOUNTER 2019-06-18 22:06 | Inpatient (IN) ==
[2019-06-18 23:32] LABS: BASO# 0.01 X1000 (0.0-0.2); BASO% 0.1 % (0.0-0.8); EOS# 0.12 X1000 (0.0-0.7); EOS% 1.7 % (0.0-10.0); HEMATOCRIT 28.7 % (42.0-52.0); HEMOGLOBIN 9.1 g/dL (14.0-18.0); IMM GRAN# 0.02 X1000 (0.0-0.04); IMM GRAN% 0.3 % (0.0-0.5); LYMPH# 0.97 X1000 (1.2-3.4); LYMPH% 13.4 % (20.5-51.1); MCH 32.6 PG (27-31); MCHC 31.7 g/dL (33-37); MCV 102.9 FL (81-99); MONO# 0.92 X1000 (0.11-0.59); MONO% 12.7 % (1.7-9.3); MPV 10.8 FL (7.4-10.4); NEUT# 5.18 X1000 (1.4-6.5); NEUT% 71.8 % (42.2-75.2); PLT 289 X1000 (130-400); RBC 2.79 XMIL (4.7-6.1); RDW 14.6 % (11.5-14.5); WBC 7.22 X1000 (4.8-10.8)
[2019-06-18 23:40] LABS: AGAP 10; ALB/GLOB RATIO 1.1; ALBUMIN 3.2 g/dL (3.5-5.0); ALKALINE PHOSPHATASE 65 U/L (32-122); BUN 25 mg/dL (8-22); CALCIUM 8.6 mg/dL (8.8-10.2); CHLORIDE 101 mmol/L (98-107); COSMO 282; ESTIMATED GFR > 60; GLUCOSE 107 mg/dL (70-104); GOT 20 U/L (10-34); GPT 12 U/L (10-44); POTASSIUM 4.6 mmol/L (3.5-5.1); SODIUM 139 mmol/L (136-145); TCO2 28 mmol/L (25-35); TOTAL BILIRUBIN < 0.15 mg/dL (0.20-1.00); TOTAL PROTEIN 6.2 g/dL (6.3-8.3)
--- NOTE | 2019-06-19 02:08 | PROVIDER DOCUMENTATION ---
This chart was entered by Elvi Ibarra Scribe, acting as scribe for Milvia Hurley MD. HPI-General Adult - General Chief Complaint: Sores/Lesions Stated Complaint: fall Time Seen by Provider: 06/18/19 22:35 Source: patient Allergies/Adverse Reactions: Patient Allergies Allergy/AdvReac Type Severity Reaction Status Date / Time Penicillins Allergy Unknown Verified 04/15/19 20:59 meperidine HCl * AdvReac Severe Unknown Verified 04/15/19 20:59 [From Demerol] Home Medications: Home Medication List Medication Instructions Recorded Confirmed Last Taken Type Acetaminophen 2 tab PO PRN PRN 04/15/19 06/19/19 04/15/19 History Buspirone HCl 1 tab PO TID 04/15/19 06/19/19 04/15/19 History Cholecalciferol (Vitamin D3) 1 tab PO DAILY 04/15/19 06/19/19 04/15/19 History [Vitamin D3] L. Acidophilus/Pectin, [place] 1 cap PO DAILY 04/15/19 06/19/19 04/15/19 History [Acidophilus Capsule] Memantine HCl 1 tab PO BID 04/15/19 06/19/19 04/15/19 History Midodrine HCl 1 tab PO TID 04/15/19 06/19/19 04/15/19 History Sodium Bicarbonate 1 tab PO DAILY 04/15/19 06/19/19 04/15/19 History Trazodone HCl 0.5 tab PO QHS 04/15/19 06/19/19 04/14/19 History Triamcinolone Acetonide 1 applic TD BID 04/15/19 06/19/19 04/15/19 History - History of Present Illness -Gen Adult Nature of Presenting Problems: pt is a 84 yr old male presenting from [facility] with complaint of sores to right hand and multiple skin tears to right arm. pt had fall today causing skin tears. pt hx of rhuematoid arthritis causing contractures to right hand, due to the contratures pts nails have dug into his palm causing open/draining wounds, redness and pain to hand. pt denies any other complaints, reports fall was due to leaving over while in wheel chair causing himself to fall out of chair. Location of Pain/Injury: reports: upper extremity (right arm), hand(s) (right hand) Pain Radiation: reports: no radiation Quality of Pain: reports: aching Severity: reports: moderate Onset/Duration: reports: gradual Timing: reports: getting worse Context/Activities at Onset: reports: rest Modifying Factors: improves with: nothing Associated Symptoms: reports: other (skin sore, skin tears) Similar Symptoms Previously?: No Recently seen or treated by another doctor?: No Review of Systems - Adult - REVIEW OF SYSTEMS - ADULT Constitutional: denies: chills, fever Eyes: reports: no symptoms reported Ears, Nose, Mouth & Throat: reports: no symptoms reported Cardiovascular: reports: no symptoms reported Respiratory: reports: no symptoms reported Gastrointestinal: reports: no symptoms reported Genitourinary: reports: no symptoms reported Musculoskeletal: reports: joint pain (chronic). denies: bone pain Integumentary: reports: skin sores/ulcer (right palm-open sores right arm- multiple skin tears) Neurological: denies: dizziness/vertigo, headache/migraines Psychiatric: reports: no symptoms reported Endocrine: reports: no symptoms reported Hematologic/Lymphatic: reports: no symptoms reported Allergic/Immunologic: reports: no symptoms reported All Other Systems: Reviewed and Negative Past History - Adult - PAST MEDICAL HISTORY-ADULT Review of Records: reports: Old Records Reviewed, Nursing Assessment Review, Medications Reviewed, Social history reviewed & non-contributory. Major Childhood Illnesses: reports: denies history Cardiovascular: reports: HTN Respiratory: reports: denies history Gastrointestinal: reports: denies history Obstetrical/Gynecological: reports: denies history Genitourinary: reports: denies history Musculoskeletal: reports: denies history Neurological: reports: denies history Endocrine/Immune: reports: denies history Other Conditions: reports: other cancer (skin) - PRIOR SURGERIES/PROCEDURES Surgical/Procedure History: reports: joint replacement - IMMUNIZATION STATUS Childhood Immunizations: See Nurse Assessment Flu Vaccine: See Nurse Assessment - FAMILY HISTORY Family History: reviewed, not pertinent - SOCIAL HISTORY Smoking: non-smoker Substance Use: none/never Living Situation: care facility ([facility]) Physical Exam-General - PHYSICAL EXAM-ADULT Initial Vital Signs Reviewed: Yes - CONSTITUTIONAL General Appearance: appears well, alert, no apparent distress - EYES Eyes: PERRL/EOMI - HEAD, EARS, NOSE, MOUTH & THROAT HENMT: normocephalic/atraumatic, moist mucous membranes - NECK Neck: non-tender, full range of motion, supple, normal inspection - RESPIRATORY Respiratory: chest non-tender, lungs clear, normal breath sounds - CARDIOVASCULAR Cardiovascular: normal peripheral pulses, regular rate, rhythm - GASTROINTESTINAL (ABDOMEN) Abdominal Exam: normal bowel sounds, non tender, soft - LYMPHATIC Lymphatic: no adenopathy - MUSCULOSKELETAL Back Exam: normal inspection Extremity: tenderness (right shoulder), other (swollen joints-consitant with R huematoid arthitis contractures to right hand). negative: normal range of motion (decreased ROM to right shoulder and bilateral hands) - SKIN Integumentary: normal color, normal turgor, warm/dry, other (skin tears to right arm skin sore to right palm where thumb, index and ring fingers are digging into hand) - PSYCHIATRIC Psych/Mental Status: normal mood/affect Progress - PLAN OF CARE/RESULTS Progress/Plan/Lab Results: Vital Signs - 8 hr 06/18/19 22:14 Temperature 97.7 F Pulse Rate 73 Respiratory Rate 18 Blood Pressure 109/65 O2 Sat by Pulse Oximetry 97 Result Diagrams: 06/18/19 22:30 06/18/19 22:30 - CONSULTS/PCP/HOSPITALIST Notification #1 *Consult/PCP/Hospitalist*: d/w Dr Anders Time Discussed: 02:00 Consult Disposition: Admit Departure - Departure Date of Disposition Decision: 06/19/19 Time of Disposition Decision: 02:05 DIAGNOSIS: Cellulitis and abscess of hand, Skin tear of right upper arm without complication, Skin tear of right elbow without complication Disposition: ADMITTED INPATIENT 09 Certified Medical Emergency: Emergent Condition: Stable - Critical Care Note This patient required my direct & personal management of CC.: No Attestation - Physician/ HARLEEN Attestation Patient care was provided by Advanced Practice Provider:: No The physician spent face to face time with patient:: Yes Advanced Practice Provider documentation review:: Supervising physician onsite and consulted in the evaluation and care of this patient. The physician did have a face to face encounter with the patient. This chart was documented by the indicated scribe, (Elvi Ibarra, Eli) and accurately reflects the services I performed and decisions made by me, Milvia Hurley MD, as attested by the provider's signature.
[2019-06-19] MEDS ORDERED: VANCOMYCIN IV PER PHARMACY MISC SCH ×2 (02:15→04:54)
[2019-06-19] MEDS ORDERED: VANCOMYCIN 1,700 MG in NS 250 ML IV ONE (03:30)
--- NOTE | 2019-06-19 04:08 | HISTORY AND PHYSICAL ---
PRIMARY CARE PHYSICIAN: Sergey Faulkner Jr, MD CHIEF COMPLAINT: Right hand wounds. HISTORY OF PRESENTING ILLNESS: An 84-year-old elderly male with a history of dementia, skin cancer, psoriasis and rheumatoid arthritis who, apparently, has contracture of the right hand which causes his nails 2 to make wounds on his palms of his right hand. It seems that the wounds were draining and subsequently the usp sent him to the emergency department. In the ED, he was evaluated, it seemed that the wounds were infected and subsequently it was thought that he would benefit from hospitalization for further management. The patient is a poor historian and most of the history is obtained from family members. However, at time of my examination, patient had denied any fever, chills, chest pain, shortness of breath or any weight changes. PAST MEDICAL HISTORY: Includes dementia, skin cancer, psoriasis, rheumatoid arthritis. PAST SURGICAL HISTORY: Bilateral hip replacement, hernia repair. ALLERGIES: Penicillin and meperidine. CURRENT MEDICATIONS: Buspirone 10 mg p.o. t.i.d., memantine 5 mg p.o. b.i.d., amiodarone 2.5 mg p.o. t.i.d., sodium bicarbonate 325 mg p.o. daily, trazodone 50 mg, half tablet p.o. at bedtime. SOCIAL HISTORY: He is a former smoker. History of alcohol use in the past. Denies any illicit drug use. FAMILY HISTORY: No history of coronary disease. REVIEW OF SYSTEMS: Fourteen point review of systems is as in HPI. Other systems negative. PHYSICAL EXAMINATION: GENERAL: Cooperative, friendly male. He is without any respiratory distress. VITAL SIGNS: Temperature 97.7 degrees, pulse 73, respiration 18, blood pressure 109/65. HEENT: Atraumatic, normocephalic. Extraocular movements intact. PERRLA. NECK: No masses. CHEST: Clear to auscultation. CARDIOVASCULAR: Regular rate and rhythm. ABDOMEN: Soft. Positive bowel sounds. EXTREMITIES: Right hand contracture and there seems to be wounds that are draining from it. GENITOURINARY: No bladder distention. SKIN: Warm. NEUROLOGIC: He is alert, oriented x1. LABORATORIES AND STUDIES: WBC 7.22, hemoglobin 9.1, hematocrit 28.7, platelets 289,000. Sodium 139, potassium 4.6, chloride 101, CO2 is 28, BUN is 25, creatinine is 1.0, glucose 107. ASSESSMENT: An 84-year-old male with a history of dementia, skin cancer, psoriasis, and rheumatoid arthritis who was sent from [facility] due to patient having worsening wounds in his right hand. The patient has apparent contracture to the right hand causing his nails to insert into his palms and develop wounds. He was seen in the ED and it seemed that the wounds were possibly infected. Subsequently, he will require admission for further management. ASSESSMENT: 1. Right hand cellulitis/wounds. 2. Dementia. 3. Psoriasis. 4. Rheumatoid arthritis with contractures. PLAN: 1. We will admit patient to medical floor with telemetry. 2. We will start patient on IV antibiotics. 3. Continue with wound care. 4. We will restart his other home medications. 5. Put patient on DVT prophylaxis with SCDs. 6. We will continue to follow, reassess and make further recommendation based on patient's clinical course. cc: Antonio Anders MD
[2019-06-19] MEDS ORDERED: ZOFRAN IV PRN (04:54)
[2019-06-19] MEDS: NS 1,000 ML IV SCH ×2 (05:09→18:12)
[2019-06-19] MEDS: ROCEPHIN 1 GM in NS 50 ML IV SCH (05:32)
--- NOTE | 2019-06-19 05:59 | Diag Imaging Result Doc PS360 ---
EXAM: HUMERUS-RIGHT HISTORY: fall TECHNIQUE: Five views COMPARISON: None. FINDINGS: The bones are osteopenic. Severe shoulder arthritis. The humeral head is superiorly placed from its normal location but this is likely due to the arthritis. No fracture. IMPRESSION: No acute bony injury. Electronically signed by Anderson Ralph 06/19/2019 5:57 AM
--- NOTE | 2019-06-19 08:47 | Diag Imaging Result Doc PS360 ---
EXAM: HAND COMPLETE RIGHT HISTORY: r hand pain/cellulitis, r/o osteo TECHNIQUE: Two views COMPARISON: 04/26/2019 FINDINGS: The hand is contracted and flexed at the metacarpal phalangeal joints. Severe long-standing arthritis in the wrist as well with joint space narrowing and likely long-standing erosions. There is also flexion to the distal interphalangeal joints with joint space narrowing. No periosteal reaction identified. IMPRESSION: Severe long-standing arthritis. No definite acute osteomyelitis. Electronically signed by Anderson Ralph 06/19/2019 8:44 AM
[2019-06-19] MEDS ORDERED: PROAMATINE PO SCH (09:00)
[2019-06-19] MEDS: CULTURELLE PO SCH (09:11)
[2019-06-19] MEDS: PROAMATINE PO SCH ×3 (09:11→20:13)
[2019-06-19] MEDS: NAMENDA PO SCH ×2 (09:11→20:14)
[2019-06-19] MEDS: BUSPAR PO SCH ×3 (09:11→20:14)
[2019-06-19] MEDS: VITAMIN D PO SCH (09:12)
[2019-06-19] MEDS: SODIUM BICARBONATE PO SCH (09:12)
[2019-06-19] MEDS: TYLENOL PO PRN (09:15)
--- NOTE | 2019-06-19 09:33 | PROGRESS NOTE ---
DATE: 06/19/2019 Mr. Godoy is an 84-year-old, white gentleman, admitted with infected right hand and patient had some redness over the right hand. The patient does have history of dementia, psoriasis, rheumatoid arthritis, bilateral hip replacement. The patient was complaining of pain in the right arm and some dysuria. Admission history physical done this morning reviewed. The patient does have infected right hand with significant contracture of the finger. Lungs: Bibasilar crepitations. Heart: S1 and S2 heard. Abdomen: Soft, nontender. Bowel sounds present. TANK FILLER: Alert, awake, able to move all 4 limbs. CONSIDERATION: Cellulitis right hand, psoriasis, rheumatoid arthritis, right arm pain. I am going to get x-ray done. Dysuria, we will check UA. Admission lab data noted. Overall plan discussed with the family, and they are in agreement. cc: MD Sergey Valenzuela Jr, MD
[2019-06-19] MEDS: KENALOG 0.1% CREAM TOP SCH ×2 (13:02→20:14)
[2019-06-19 13:25] LABS: URINE SOURCE CLEAN CATCH
[2019-06-19 13:27] LABS: BILIRUBIN URINE NEGATIVE (NEGATIVE); BLOOD URINE MODERATE (NEGATIVE); COLOR ORANGE; GLUCOSE URINE NEGATIVE (NEGATIVE); KETONE URINE NEGATIVE (NEGATIVE); LEUKOCYTES URINE LARGE (NEGATIVE); NITRITE URINE POSITIVE (NEGATIVE); PROTEIN URINE TRACE mg/dL (NEGATIVE); SP GRAVITY URINE 1.014; TURBIDITY URINE HAZY (CLEAR); UROBILINOGEN URINE NORMAL (NORMAL)
[2019-06-19 13:37] LABS: UR EPITHELIAL CELLS <10 /HPF (<10); URINE BACTERIA NEGATIVE /HPF; URINE RBC TNTC /HPF (<10); URINE WBC TNTC /HPF (<10)
[2019-06-19 14:04] LABS: URINE YEAST NONE SEEN
[2019-06-19] MEDS: DESYREL PO SCH (20:14)
[2019-06-20] MEDS: VANCOMYCIN 1,100 MG in NS 250 ML IV SCH (02:35)
[2019-06-20] MEDS ORDERED: VANCOMYCIN 1,100 MG in NS 250 ML IV SCH (03:30)
[2019-06-20] MEDS: ROCEPHIN 1 GM in NS 50 ML IV SCH (05:15)
[2019-06-20 07:47] LABS: AGAP 10; BUN 19 mg/dL (8-22); CALCIUM 8.1 mg/dL (8.8-10.2); CHLORIDE 106 mmol/L (98-107); COSMO 283; ESTIMATED GFR > 60; GLUCOSE 82 mg/dL (70-104); POTASSIUM 4.4 mmol/L (3.5-5.1); SODIUM 141 mmol/L (136-145); TCO2 25 mmol/L (25-35)
[2019-06-20 08:23] LABS: BASO# 0.01 X1000 (0.0-0.2); BASO% 0.1 % (0.0-0.8); EOS# 0.13 X1000 (0.0-0.7); EOS% 1.7 % (0.0-10.0); HEMATOCRIT 29.8 % (42.0-52.0); HEMOGLOBIN 9.5 g/dL (14.0-18.0); IMM GRAN# 0.02 X1000 (0.0-0.04); IMM GRAN% 0.3 % (0.0-0.5); LYMPH# 0.98 X1000 (1.2-3.4); LYMPH% 12.8 % (20.5-51.1); MCHC 31.9 g/dL (33-37); MCV 103.5 FL (81-99); MONO# 0.77 X1000 (0.11-0.59); MONO% 10.1 % (1.7-9.3); MPV 10.6 FL (7.4-10.4); NEUT# 5.73 X1000 (1.4-6.5); PLT 270 X1000 (130-400); RBC 2.88 XMIL (4.7-6.1); RDW 14.8 % (11.5-14.5); WBC 7.64 X1000 (4.8-10.8)
--- NOTE | 2019-06-20 09:52 | PROGRESS NOTE ---
DATE: 06/20/2019 SUBJECTIVE: Mr. Godoy has swelling of the right hand, infection of the right hand. No high-grade fever or chills. Mild cough. No expectoration. The patient admitted with infected right hand due to a contracture of the finger and his fingernail going into soft tissue of the hand, causing infection. No chest pain or palpitations. Denied any nausea or vomiting. The patient has a chronic catheter. PAST MEDICAL HISTORY: Significant for dementia, psoriasis, rheumatoid arthritis. The patient had bilateral hip replacement done. OBJECTIVE: His vital signs noted. The patient does have infected right hand with some swelling, contracture of the fingers, deformity of the left hand. Neck: Supple. No JVD. Lungs: Bilateral good air entry present. Few basal crepitations. CVS: S1 and S2 heard. Abdomen: Soft, nontender. Bowel sounds present. AGENCY CASHIER: Alert, awake. Uncooperative for detailed exam. Laboratory Data: Done today, hemoglobin 9.5, hematocrit 29.8, platelet count 270,000. CONSIDERATION: 1. Infected right hand. 2. History of rheumatoid arthritis. 3. Dementia. 4. Obstructive uropathy and chronic catheter. 5. His x-ray of the humerus reveals significant arthritis of the shoulder. No acute bony injury. PLAN: The patient is on Rocephin, which we will continue. Wound care nurse evaluating patient with us. cc: MD Sergey Valenzuela Jr, MD
[2019-06-20] MEDS ORDERED: GENTAMICIN 0.3% OPH DROPS BOTH EYES SCH (10:30)
[2019-06-20] MEDS: CULTURELLE PO SCH (11:11)
[2019-06-20] MEDS: PROAMATINE PO SCH ×3 (11:11→20:31)
[2019-06-20] MEDS: NAMENDA PO SCH ×2 (11:12→20:32)
[2019-06-20] MEDS: SODIUM BICARBONATE PO SCH (11:12)
[2019-06-20] MEDS: VITAMIN D PO SCH (11:12)
[2019-06-20] MEDS: BUSPAR PO SCH ×3 (11:12→20:31)
[2019-06-20] MEDS: KENALOG 0.1% CREAM TOP SCH ×2 (11:13→20:34)
--- NOTE | 2019-06-20 11:37 | Diag Imaging Result Doc PS360 ---
EXAM: CHEST-PORTABLE - 06/20/2019 HISTORY: sob TECHNIQUE: Portable chest COMPARISON: 03/27/2020 FINDINGS: Heart size appears the upper range of normal and mildly decreased compared to prior. There is mild prominence of central markings which appears stable to mildly decreased. There is been apparent resolution of prior small pleural effusions. There is no dense consolidation or pneumothorax identified. There are mild artifacts from skin fold noted over the lateral lung bases. IMPRESSION: Mild prominence of central vascular markings. No discrete pneumonia. Electronically signed by Eric Ayoub 06/20/2019 11:34 AM
[2019-06-20] MEDS: TYLENOL PO PRN ×2 (12:15→20:32)
--- NOTE | 2019-06-20 13:58 | CONSULTATION ---
DATE OF CONSULTATION: 06/20/2019 Mr. Pj Godoy is an 84-year-old white male who was admitted through the emergency department on 06/18/2019 with swelling and pain involving his right hand. He has a history of rheumatoid arthritis and has contractures involving his right hand. He has a sore involving the palm were one of his nails digs into his skin. There is diffuse swelling and erythema involving the right hand. He does have a palpable radial pulse. The hand is warm. I was asked to see him by Dr. Domingo. It was difficult to examine him at the bedside because of his soreness and I will recommended orthopedic consultation because of his rheumatoid arthritis and further evaluation of infection of the hand. cc: MD Sergey Young Jr, MD
[2019-06-20] MEDS: DESYREL PO SCH (20:31)
[2019-06-21] MEDS: VANCOMYCIN 1,100 MG in NS 250 ML IV SCH (03:36)
[2019-06-21] MEDS: ROCEPHIN 1 GM in NS 50 ML IV SCH (06:40)
--- NOTE | 2019-06-21 09:25 | EKG Report ---
Test Performed on : 06/21/2019 09:14:14 AM Test Reason : hx of arrythmia Blood Pressure : / mmHG Vent. Rate : 073 BPM Atrial Rate : 064 BPM P-R Int : 000 ms QRS Dur : 076 ms QT Int : 356 ms P-R-T Axes : 000 -03 045 degrees QTc Int : 392 ms Normal sinus rhythm. with frequent premature ventricular complexes. Nonspecific T wave abnormality Abnormal ECG When compared with ECG of 15-APR-2019 19:30, (Unconfirmed) Nonspecific T wave abnormality, worse in Lateral leads QT has shortened Confirmed by Yoshi Monroy MD ([id number]) on 06/23/2019 5:56:03 PM
--- NOTE | 2019-06-21 09:33 | PROGRESS NOTE ---
DATE: 06/21/2019 SUBJECTIVE: The patient is quite talkative. He is not complaining of much. He has a little dysuria. He has contractures of his hands with cellulitis of the right palm. He had had the contractures when he was in the hospital last, and we consulted Dr. Young who recommended physical therapy for his hands and this was in April. The patient apparently never got physical therapy. His fingernails have grown into the palm cutting his palm. Now he has MRSA growing. Also on urinalysis he had [id number]-count WBCs, but his culture was negative. I do not know whether the culture was obtained after he was started on antibiotics or not, but he is complaining of dysuria. OBJECTIVE: Vital Signs: Blood pressure 120/57, respirations 18, pulse 73, temperature 97.7 degrees Fahrenheit. HEENT: Normocephalic. PERRLA. Throat clear. Lungs: Clear to auscultation and percussion without rhonchi, rales or wheezes. Heart: Regular rate and rhythm without murmurs, gallops or friction rubs. Abdomen: Soft active bowel sounds. No organomegaly or tenderness. Extremities: He does have bilateral hand contractures with redness and swelling consistent with cellulitis of the right palm. He is growing MRSA from the wound. He is on vancomycin and will continue that. He is also sensitive to tetracycline so we could probably treat him with doxycycline when we switch him over to oral medicines. The patient is confused, he has dementia. ASSESSMENT: 1. MRSA infection of the right palm. 2. Contractures of both hands. 3. Dementia. PLAN: We will consult Orthopedics. Continue IV antibiotics. cc: Sergey Faulkner Jr, MD
[2019-06-21] MEDS: CULTURELLE PO SCH (09:39)
[2019-06-21] MEDS: TYLENOL PO PRN ×3 (09:39→23:18)
[2019-06-21] MEDS: SODIUM BICARBONATE PO SCH (09:40)
[2019-06-21] MEDS: BUSPAR PO SCH ×3 (09:40→21:22)
[2019-06-21] MEDS: NAMENDA PO SCH ×2 (09:40→21:22)
[2019-06-21] MEDS: VITAMIN D PO SCH (09:40)
[2019-06-21] MEDS: PROAMATINE PO SCH ×3 (09:40→21:22)
--- NOTE | 2019-06-21 11:56 | ORTHOPAEDICS CONSULTATION ---
DATE: 06/21/2019 CHIEF COMPLAINT: Wound of the right hand with drainage and contractures. HISTORY OF PRESENT ILLNESS: This is an 84-year-old male with a history of dementia, as well as skin cancer, rheumatoid arthritis, psoriasis, and contractures of bilateral hands. He reports he had a chronic wound of the right hand where his nails have been digging into his right hand due to his hand contracture. He was also seen by Dr. Young in the past, who recommended physical therapy to help with his range of motion of the hand, which he has not been able to go. Patient reports that this has been getting worse and starting to drain, and an odor began to develop. He has denied fever or chills. Orthopedics was consulted to come see the patient. PAST MEDICAL HISTORY: Includes dementia, psoriasis, rheumatoid arthritis, skin cancer, contractures of bilateral hands. PAST SURGICAL HISTORY: Includes bilateral hip replacements and hernia repair. ALLERGIES: Include penicillin and meperidine. SOCIAL HISTORY: The patient is a former smoker, denies current alcohol or illicit drug use. CURRENT MEDICATIONS: Buspirone 10 mg t.i.d., memantine 5 mg b.i.d., amiodarone 2.5 mg t.i.d., sodium bicarbonate 325 mg p.o. daily, trazodone 50 mg half tablet at bedtime for sleep. REVIEW OF SYSTEMS: Twelve point review of system performed. For pertinent positives, see HPI. PHYSICAL EXAMINATION: Vital Signs: Temperature 97.9 degrees, pulse rate 53, respiratory rate 18, blood pressure 134/87, oxygen saturations 95% on room air. General: The patient is awake, alert, and talking in bed in no acute distress. HEENT: Head is atraumatic, normocephalic. Eyes are equal, round, reactive. Neck: Supple. Chest: There is equal chest expansion rise and fall. Cardiovascular: Regular rate and rhythm at this time. Abdomen: Soft, nontender. Extremities: Right upper extremity exam: The right hand is severely contracted where the nails are digging into the palm. There is pustular discharge coming from the palm. Left upper extremity exam: There is severe contracture to the left hand where there is no active wound or infection. The right hand is warm to the touch. The fingertips do seem to have good capillary refill at this time. Neurologic: The patient is oriented x1. LABS: White blood cell 7.64, red blood cell 2.88, hemoglobin 9.5, hematocrit 29.8, platelets 270. Sodium 141, potassium 4.4, chloride is 106. BUN 19, creatinine 1.0, calcium is 8.1. Urine showed trace protein, moderate blood, positive nitrites, large amount of leukocytes and lzo-fwztvxqs-ap- count white blood cells, as well as red blood cells. ASSESSMENT: Bilateral upper extremity hand contractures with rheumatoid arthritis and methicillin- resistant Staphylococcus aureus infection of the right hand. PLAN: We will plan to see if we can get his nails out of his palm. We will try to place a wrap over the hand at this time. We will see if we can get his nails trimmed. We will see if IV antibiotics will take care of this infection at this point. If he does not improve, then we may consider an incision and drainage of the right hand. We also recommend physical therapy to help with the contractures of the hand. He should keep his nails trimmed and short. He should also have some type of padding up underneath the hands and nails to prevent them from protruding through the palm of the hand. Dictated by AIDA Garibay for Bennett Manjarrez MD cc: AIDA Garibay MD Roger H. Moss Jr, MD
--- NOTE | 2019-06-21 13:06 | Diag Imaging Result Doc PS360 ---
EXAM: HAND COMPLETE LEFT 06/21/2019 HISTORY: Contracture/Pain TECHNIQUE: Left hand three views COMMENT: There is a contracture deformity of the index and to lesser extent the middle finger. There is joint space narrowing at the first second and third metacarpophalangeal joints. There is some osteophyte formation in the distal interphalangeal joint of the fifth finger. There are severe degenerative changes between the capitate and the lunate and between the trapezoid and trapezium and the scaphoid. There is also deformity at the first metacarpocarpal phalangeal joint. Compared to the previous study of 04/26/2019 there has been no appreciable change. IMPRESSION: Severe degenerative changes and deformities as described. Electronically signed by Mikhail Adams 06/21/2019 1:03 PM
--- NOTE | 2019-06-21 13:08 | Diag Imaging Result Doc PS360 ---
EXAM: HAND COMPLETE RIGHT 06/21/2019 HISTORY: Contracture/Pain TECHNIQUE: Right hand four views COMMENT: There is contracture deformity of the fingers with the exception of the thumb. There are severe hypertrophic changes at the first metacarpocarpal joint and there is sclerosis of the capitate adjacent to the lunate and erosion of the hamate also near its articulation with the lunate. There is a cyst in the lunate and sclerosis of the lunate. Compared to 06/18/2019 there has been no appreciable change. IMPRESSION: Degenerative arthritis and contracture deformities. Electronically signed by Mikhail Adams 06/21/2019 1:05 PM
[2019-06-21 14:09] LABS: URINE SOURCE CATH
[2019-06-21] MEDS: KENALOG 0.1% CREAM TOP SCH ×2 (14:14→21:24)
[2019-06-21 14:28] LABS: BILIRUBIN URINE NEGATIVE (NEGATIVE); BLOOD URINE TRACE (NEGATIVE); COLOR YELLOW; GLUCOSE URINE NEGATIVE (NEGATIVE); KETONE URINE NEGATIVE (NEGATIVE); LEUKOCYTES URINE LARGE (NEGATIVE); NITRITE URINE NEGATIVE (NEGATIVE); PROTEIN URINE TRACE mg/dL (NEGATIVE); TURBIDITY URINE HAZY (CLEAR); UROBILINOGEN URINE NORMAL (NORMAL)
[2019-06-21 14:29] LABS: UR EPITHELIAL CELLS <10 /HPF (<10); URINE BACTERIA NEGATIVE /HPF; URINE RBC <10 /HPF (<10); URINE WBC TNTC /HPF (<10)
[2019-06-21] MEDS: DESYREL PO SCH (21:22)
[2019-06-22] MEDS ORDERED: AMBIEN PO ONE (01:40)
[2019-06-22] MEDS: VANCOMYCIN 1,350 MG in NS 250 ML IV SCH (04:50)
[2019-06-22 08:01] LABS: HEMATOCRIT 27.1 % (42.0-52.0); HEMOGLOBIN 8.6 g/dL (14.0-18.0); MCH 33.5 PG (27-31); MCHC 31.7 g/dL (33-37); MCV 105.4 FL (81-99); MPV 10.6 FL (7.4-10.4); RBC 2.57 XMIL (4.7-6.1); RDW 14.8 % (11.5-14.5); WBC 5.77 X1000 (4.8-10.8)
[2019-06-22 08:20] LABS: CALCIUM 8.4 mg/dL (8.8-10.2); CREATININE 1.2 mg/dL (0.7-1.2); POTASSIUM 4.6 mmol/L (3.5-5.1)
--- NOTE | 2019-06-22 09:22 | PROGRESS NOTE ---
DATE: 06/22/2019 SUBJECTIVE: The patient was sleeping. When I tried to arouse him, he wondered who I was. He mumbled a few words and went back off to sleep. Apparently, he has been up the last 2 nights and is not getting enough rest so that he is sleeping during the day. Family members were in the room at the time. They said that he has been restless at night. Orthopedics came by to see the patient and look at his cellulitis. Wound Care has also come by. They are going to try to get his nails clipped if they have not already done that. They have got new dressings on the right hand. The patient needs physical therapy for his hands. He needs to keep the nails clean clipped. He cannot do it himself. He is at [facility], and we will make sure that they understand that they need to keep this clipped and keep padding his hands. He also needs to have physical therapy. He was also found to be anemic, and his hemoglobin is a little bit lower today. It is 8.6 and hematocrit 27.1. He has macrocytic indices, but we will do a vitamin B12 and a folate level on him. I will go ahead and get serum iron also since his MCHC was low, even though his MCH and his MCV were both elevated. We will check stool for blood. His EKG showed a junctional rhythm that he has not had previously with some ST-T wave changes that were nonspecific. We will get Cardiology just to take a look at him. He has not complained of any chest pain. With his other conditions, we may just be watching this, but I want their opinion. OBJECTIVE: Vital Signs: Temperature 98.1 degrees Fahrenheit, blood pressure 135/60, respirations 20, pulse 61. HEENT: He is normocephalic. EOMS intact. Neck: Supple. Lungs: Clear to auscultation and percussion without rhonchi, rales, or wheezes. Heart: Slightly irregular. He does have PVCs on his EKG. Abdomen: Soft and active bowel sounds. No organomegaly or tenderness. Neurological: The patient gets confused. He has dementia. He is very sleepy this morning. DIAGNOSTIC DATA: Urinalysis did show again too numerous to count white blood cells. I wonder if the patient has gotten his antibiotics before they got this specimen for his urine for culture and that is why it did not grow anything. It will be cultured again. He was on vancomycin and Rocephin. I stopped the Rocephin because he did not need it for the MRSA in his right palm. I will add Macrobid 100 mg p.o. b.i.d. ASSESSMENT: 1. Cellulitis, right palm and hand. 2. Contractures of both hands. 3. Wounds to right palm from the fingernails. 4. Anemia. 5. Dementia. 6. Junctional rhythm. 7. Abnormal EKG with T-wave inversions. PLAN: As above. We will get Cardiology to see. Appreciate Orthopedic seeing. I have add Macrobid to his regimen and stopped his Rocephin. cc: Sergey Faulkner Jr, MD
[2019-06-22 09:37] LABS: IRON SATURATION 22 %; TIBC 188 ug/dL; TOTAL IRON 42 ug/dL (53-167); UNBOUND IRON 146 ug/dL (112-346)
--- NOTE | 2019-06-22 09:38 | EKG Report ---
Test Performed on : 06/22/2019 09:28:37 AM Test Reason : arrhythmia Blood Pressure : / mmHG Vent. Rate : 049 BPM Atrial Rate : 049 BPM P-R Int : 128 ms QRS Dur : 082 ms QT Int : 460 ms P-R-T Axes : 101 -12 014 degrees QTc Int : 415 ms Critical Test Result: Low HR Sinus bradycardia. with premature atrial complexes. Nonspecific T wave abnormality Inferior leads Otherwise normal ECG When compared with ECG of 21-JUN-2019 09:14, (Unconfirmed) Vent. rate has decreased BY 24 BPM Nonspecific T wave abnormality now evident in Inferior leads Confirmed by Yoshi Monroy MD ([id number]) on 06/23/2019 6:18:55 PM
[2019-06-22] MEDS: SODIUM BICARBONATE PO SCH (09:44)
[2019-06-22] MEDS: CULTURELLE PO SCH (09:45)
[2019-06-22] MEDS: PROAMATINE PO SCH ×3 (09:45→21:00)
[2019-06-22] MEDS: BUSPAR PO SCH ×3 (09:45→21:01)
[2019-06-22] MEDS: VITAMIN D PO SCH (09:45)
[2019-06-22] MEDS: NAMENDA PO SCH ×2 (09:45→21:01)
[2019-06-22] MEDS: MACROBID PO SCH ×2 (09:46→21:01)
[2019-06-22] MEDS: KENALOG 0.1% CREAM TOP SCH ×2 (09:49→21:01)
--- NOTE | 2019-06-22 14:20 | ORTHOPAEDICS PROGRESS NOTE ---
DATE: 06/22/2019 SUBJECTIVE: Mr. Godoy is seen yesterday in today for his wounds about the hand. He has chronic contractures with flexion deformity of the digits. 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 Now he has some fairly significant contractures. At this point, we have clipped the nails back to prevent further damage. He will need to have the wound dressed several times a day. We will need to get occupational therapy involved for stretching out the contractures and making him a splint to prevent further damage once he is outpatient. I will see him back in the office in roughly 1 to 2 weeks. He can be discharged on p.o. medication and dressing changes to the hand 3 times a day. cc: MD Sergey Marinelli Jr, MD
--- NOTE | 2019-06-22 15:04 | CONSULTATION ---
DATE OF CONSULTATION: 06/22/2019 IMPRESSION: 1. Bradycardia with ECG showing sinus bradycardia. There is no history of syncope. The patient appears to be asymptomatic from a cardiovascular standpoint. 2. Currently admitted with methicillin-resistant Staphylococcus aureus infection of right hand and palm involving wound inflicted by fingernails and contractures right hand related to advanced rheumatoid arthritis. 3. Dementia. Patient has limited functional status and according to family is not ambulatory. 4. Rheumatoid arthritis. RECOMMENDATIONS: No intervention needed from cardiovascular standpoint. Will see further on an as needed basis. HISTORY: This 84-year-old white male with past history of dementia and advanced rheumatoid arthritis who resides in a shelter was transferred for further management of wound in his right hand related to chronic contractures and ingrowth of fingernails into palm of right hand with associated methicillin-resistant Staph aureus infection. He was noted to have bradycardia and for this reason, Cardiology was consulted. At present he is not very responsive with stable blood pressure. He has not been eating. There is no history of syncope. Echocardiography in the last few months demonstrated normal left ventricular ejection fraction. He is on medications for his dementia. PAST MEDICAL HISTORY: 1. Dementia. 2. Advanced rheumatoid arthritis. 3. Psoriasis. PAST SURGICAL HISTORY: Includes bilateral hip replacement and previous hernia repair. ALLERGIES: He is allergic or intolerant to penicillin and meperidine. MEDICATIONS PRIOR TO ADMISSION: As listed. SOCIAL HISTORY: He is . He lives at [facility]. He has history of previous tobacco use several years ago. He does not use alcohol. FAMILY HISTORY: Negative for premature coronary disease. REVIEW OF SYSTEMS: Not reliably obtainable given patient's present condition. PHYSICAL EXAMINATION: General: This is a thin, elderly white male with eyes closed who is breathing spontaneously and does not appear to be any distress. Vital signs: Blood pressure 121/49, heart rate 70 with ECG monitor showing sinus rhythm. HEENT: Extraocular movements appear intact. Mucous membranes are dry. Neck: Supple without jugular distention. There are no carotid bruits. Chest: Clear to auscultation. Cardiac: Reveals a regular rate and rhythm without appreciable murmur or gallop. Abdomen: Soft. Bowel sounds are normal. Extremities: Without edema. DATA: Twelve lead EKG demonstrates sinus bradycardia with heart rate of 49 beats per minute. P waves are diminutive. LABORATORY DATA: Includes a sodium 135, potassium 4.6, chloride 100, carbon dioxide 28, BUN 26, creatinine 1.2, glucose 84. White blood cell count 5.77, hematocrit 27.1, hemoglobin 8.6, platelet count 236,000. cc: MD Sergye Michael Jr, MD
[2019-06-22] MEDS: DESYREL PO SCH (21:01)
[2019-06-23] MEDS: TYLENOL PO PRN ×2 (00:25→10:44)
[2019-06-23] MEDS: VANCOMYCIN 1,350 MG in NS 250 ML IV SCH (05:52)
--- NOTE | 2019-06-23 08:10 | EKG Report ---
Test Performed on : 06/23/2019 07:07:49 AM Test Reason : bradycardia Blood Pressure : / mmHG Vent. Rate : 069 BPM Atrial Rate : 069 BPM P-R Int : 122 ms QRS Dur : 076 ms QT Int : 380 ms P-R-T Axes : -26 066 052 degrees QTc Int : 407 ms Sinus rhythm. with premature atrial complexes. with aberrant conduction. Low voltage QRS Borderline ECG When compared with ECG of 22-JUN-2019 09:28, (Unconfirmed) Questionable change in QRS axis Confirmed by Yoshi Monroy MD ([id number]) on 06/23/2019 7:33:29 PM
[2019-06-23 09:13] LABS: CALCIUM 8.3 mg/dL (8.8-10.2); CREATININE 1.2 mg/dL (0.7-1.2)
--- NOTE | 2019-06-23 09:13 | PROGRESS NOTE ---
DATE: 06/23/2019 SUBJECTIVE: The patient says he is feeling a little bit better. He is more alert. He said he ran a fever last night and that was brought down, but I do not see any fever recorded. He does have anemia and his vitamin B12 level was normal but his folate level was low so I am going to add some p.o. folate. OBJECTIVE: Blood pressure is 135/64, respirations 20, pulse 59, temperature 98.0 degrees Fahrenheit. HEENT: He is normocephalic. Lungs: Clear to auscultation and percussion without rhonchi, rales, or wheezes. Heart: Regular rate and rhythm without murmurs, gallops, or friction rubs, to sinus bradycardia. Abdomen: Soft with active bowel sounds. Right hand is bandaged up. I did not unbandage this. CMP is essentially normal. Creatinine 1.2, BUN 26, calcium is a little low at 8.4 but albumin has been a little low at 3.2. Folate is 7.5. Repeat urinalysis did still show too numerous to count WBCs. Urine culture was still negative but this may be because he was on antibiotics. ASSESSMENT: 1. Infected right hand with cellulitis and wounds with Staphylococcus aureus which is methicillin- resistant. 2. Dementia. 3. Urinary tract infection. 4. Bradycardia. Appreciate cardiology coming to see him. 5. Contractures to both hands. 6. Anemia. PLAN: We will continue antibiotics and support. We will add folic acid 1 mg p.o. b.i.d. cc: Sergey Faulkner Jr, MD
[2019-06-23 09:14] LABS: POTASSIUM 4.9 mmol/L (3.5-5.1)
[2019-06-23] MEDS: BUSPAR PO SCH ×3 (09:18→21:02)
[2019-06-23] MEDS: NAMENDA PO SCH ×2 (09:19→21:01)
[2019-06-23] MEDS: PROAMATINE PO SCH ×3 (09:19→21:01)
[2019-06-23] MEDS: MACROBID PO SCH ×2 (09:19→21:01)
[2019-06-23] MEDS: VITAMIN D PO SCH (09:19)
[2019-06-23] MEDS: SODIUM BICARBONATE PO SCH (09:19)
[2019-06-23] MEDS: CULTURELLE PO SCH (09:19)
[2019-06-23] MEDS: FOLIC ACID PO SCH ×2 (09:20→21:01)
[2019-06-23] MEDS: KENALOG 0.1% CREAM TOP SCH ×2 (09:20→21:03)
[2019-06-23] MEDS: DESYREL PO SCH (21:01)
[2019-06-24] MEDS: VANCOMYCIN 1,350 MG in NS 250 ML IV SCH (04:44)
--- NOTE | 2019-06-24 08:42 | PROGRESS NOTE ---
DATE: 06/24/2019 SUBJECTIVE: The patient is very paranoid this morning, says everything is a game. This is part of his dementia. His tells me he has been getting this over the last couple of days, and that is why he is in [facility] because of his dementia anyway. OBJECTIVE: Vital Signs: Blood pressure 129/52, respirations 14, pulse 47, and temperature 98.4 degrees Fahrenheit. HEENT: Normocephalic. EOMS intact. PERRLA. Throat clear. Lungs: Clear to auscultation and percussion without rhonchi, rales, or wheezes. Heart: Bradycardic without murmurs, gallops, or friction rubs. Neurological/Extremities: The patient is confused, but he is moving all extremities. Right upper extremity does show swelling still, but cellulitis is much improved. Orthopedics has seen him and feels that he could soon be placed on oral antibiotics, and they are going to see him as an outpatient. Nutrition: I will make sure that he is eating well today. He skipped a couple meals yesterday. LABORATORY DATA: Chemistry profile was essentially normal yesterday. The patient refused to get blood work today. ASSESSMENT: 1. Cellulitis, right upper extremity. 2. Contractures of both hands with wounds on his right palm from his fingernails. 3. Dementia. PLAN: We will continue antibiotics today. We will treat iron deficiency anemia conservatively by adding some ferrous sulfate. Bradycardia, he is being followed by Cardiology, but it feels like nothing needs to be done at this point. He has had no chest pains. Most likely we will try to get back to [facility] tomorrow on oral antibiotics and physical therapy for his contractures. cc: Sergey Faulkner Jr, MD
[2019-06-24 11:38] LABS: BASO# 0.03 X1000 (0.0-0.2); BASO% 0.5 % (0.0-0.8); EOS# 0.15 X1000 (0.0-0.7); EOS% 2.4 % (0.0-10.0); HEMATOCRIT 29.5 % (42.0-52.0); HEMOGLOBIN 9.4 g/dL (14.0-18.0); LYMPH# 0.87 X1000 (1.2-3.4); LYMPH% 14.1 % (20.5-51.1); MCH 33.1 PG (27-31); MCHC 31.9 g/dL (33-37); MCV 103.9 FL (81-99); MONO# 0.82 X1000 (0.11-0.59); MONO% 13.3 % (1.7-9.3); MPV 10.4 FL (7.4-10.4); NEUT# 4.28 X1000 (1.4-6.5); NEUT% 69.7 % (42.2-75.2); PLT 256 X1000 (130-400); RBC 2.84 XMIL (4.7-6.1); RDW 14.4 % (11.5-14.5); WBC 6.15 X1000 (4.8-10.8)
[2019-06-24 11:55] LABS: CALCIUM 8.7 mg/dL (8.8-10.2); CREATININE 1.2 mg/dL (0.7-1.2); POTASSIUM 4.9 mmol/L (3.5-5.1)
[2019-06-24] MEDS: MACROBID PO SCH ×2 (12:34→20:52)
[2019-06-24] MEDS: FOLIC ACID PO SCH ×2 (12:35→20:52)
[2019-06-24] MEDS: SODIUM BICARBONATE PO SCH (12:35)
[2019-06-24] MEDS: VITAMIN D PO SCH (12:35)
[2019-06-24] MEDS: BUSPAR PO SCH ×3 (12:36→20:52)
[2019-06-24] MEDS: CULTURELLE PO SCH (12:36)
[2019-06-24] MEDS: PROAMATINE PO SCH ×3 (12:36→20:52)
[2019-06-24] MEDS: TYLENOL PO PRN ×2 (12:37→19:28)
[2019-06-24] MEDS: KENALOG 0.1% CREAM TOP SCH ×2 (12:41→20:52)
[2019-06-24] MEDS: FERROUS SULFATE PO SCH (12:42)
[2019-06-24] MEDS: NAMENDA PO SCH ×2 (12:43→20:52)
[2019-06-24] MEDS: DESYREL PO SCH (20:52)
[2019-06-25] MEDS: VANCOMYCIN 1,350 MG in NS 250 ML IV SCH (04:59)
--- NOTE | 2019-06-25 07:38 | EKG Report ---
Test Performed on : 06/25/2019 06:39:15 AM Test Reason : bradycardia Blood Pressure : / mmHG Vent. Rate : 045 BPM Atrial Rate : 045 BPM P-R Int : 126 ms QRS Dur : 082 ms QT Int : 508 ms P-R-T Axes : 101 014 045 degrees QTc Int : 439 ms Critical Test Result: Low HR Sinus bradycardia. Otherwise normal ECG When compared with ECG of 23-JUN-2019 07:07, aberrant conduction. is no longer present Vent. rate has decreased BY 24 BPM Confirmed by Yoshi Monroy MD ([id number]) on 06/26/2019 10:49:43 AM
[2019-06-25 09:35] LABS: BASO# 0.04 X1000 (0.0-0.2); BASO% 0.7 % (0.0-0.8); EOS# 0.27 X1000 (0.0-0.7); EOS% 4.5 % (0.0-10.0); HEMATOCRIT 30.6 % (42.0-52.0); HEMOGLOBIN 9.8 g/dL (14.0-18.0); IMM GRAN# 0.02 X1000 (0.0-0.04); IMM GRAN% 0.3 % (0.0-0.5); LYMPH# 0.94 X1000 (1.2-3.4); LYMPH% 15.7 % (20.5-51.1); MCH 33.2 PG (27-31); MCV 103.7 FL (81-99); MONO# 0.65 X1000 (0.11-0.59); MONO% 10.9 % (1.7-9.3); MPV 10.2 FL (7.4-10.4); NEUT# 4.06 X1000 (1.4-6.5); NEUT% 67.9 % (42.2-75.2); PLT 279 X1000 (130-400); RBC 2.95 XMIL (4.7-6.1); RDW 14.3 % (11.5-14.5); WBC 5.98 X1000 (4.8-10.8)
[2019-06-25] MEDS: NAMENDA PO SCH (09:36)
[2019-06-25] MEDS: TYLENOL PO PRN ×2 (09:36→16:33)
[2019-06-25] MEDS: PROAMATINE PO SCH ×2 (09:36→16:34)
[2019-06-25] MEDS: CULTURELLE PO SCH (09:36)
[2019-06-25] MEDS: FERROUS SULFATE PO SCH (09:38)
[2019-06-25] MEDS: SODIUM BICARBONATE PO SCH (09:38)
[2019-06-25] MEDS: MACROBID PO SCH (09:38)
[2019-06-25] MEDS: VITAMIN D PO SCH (09:40)
[2019-06-25] MEDS: KENALOG 0.1% CREAM TOP SCH (09:40)
[2019-06-25] MEDS: FOLIC ACID PO SCH (09:40)
[2019-06-25] MEDS: BUSPAR PO SCH ×2 (09:40→16:34)
[2019-06-25] MEDS ORDERED: VANCOMYCIN 1,100 MG in NS 250 ML IV SCH (11:13)
--- NOTE | 2019-06-25 12:45 | DISCHARGE SUMMARY ---
ADMISSION DATE: 06/19/2019 DISCHARGE DATE: 06/25/2019 CONSULTATIONS: With Dr. Abdi Manjarrez, Orthopedic Surgery, and with Cardiology, Dr. Walsh. FINAL DIAGNOSES: 1. MRSA wound infection of right palm. 2. Contractures of both hands but worse on the right. 3. Bradycardia. 4. Dementia. 5. Anemia of chronic disease with slightly low iron. 6. Pyuria. 7. Psoriasis. HISTORY OF PRESENT ILLNESS: The patient presented with infected right palm with wound in his hands from his fingernails. He has contractures and though he is staying at [facility] his fingernails grew into his palms, these will have to be kept trimmed back in the future, and he will have to have physical therapy for his contractures. The wounds did grow out MRSA, and he was treated with IV vancomycin. The MRSA was sensitive to tetracyclines. He still has some wounds in his hands, but these are much better. The cellulitis seems to have cleared, there is no drainage now. While he was in the hospital it was noted that he had too numerous to count white blood cells in his urine, we cultured this and had no growth. We rechecked it, he still had too numerous to count white blood cells, recultured still no growth, and no yeast. He has had no particular symptoms with this. He did have some bradycardia and some anemia, the anemia has been stable. He did have slight iron deficiency and folate deficiency, and so he was started on supplementation. The bradycardia does not seem to be bothering him. Cardiology was consulted, they did not feel like any intervention was needed. He is running from the mid 40s to upper 60s and a sinus rhythm otherwise. PHYSICAL EXAMINATION: Vital Signs: Show a temperature of 98 degrees Fahrenheit, pulse 68, respirations 16, blood pressure 102/49. HEENT: He is normocephalic. EOMs intact. Throat clear. Lungs: Clear to auscultation and percussion without rhonchi, rales or wheezes. Heart: Regular rate and rhythm to sinus bradycardia without murmurs, gallops or friction rubs. Abdomen: Soft. Active bowel sounds. No organomegaly or tenderness. Neurological: Intact grossly. He is very confused with his dementia, this is a chronic condition. ASSESSMENT: Wounds in his right palm were still present, but much better and not draining any at this time. He has had some foam dressings there. His nails have been clipped. PLAN: We will see him back to [facility]. He will need foam dressings and physical therapy and will need to keep those nails clipped. I will place him on doxycycline 100 mg p.o. b.i.d. for another 10 days. He will be on folic acid 1 mg twice daily. He will be on ferrous sulfate 325 mg daily. He will be on his other routine medications. He needs to be seen by Dr. Manjarrez, Orthopedic Surgeon in 1 to 2 weeks. I will see him back as he can go back, but he usually has to travel by ambulance. cc: Sergey Faulkner Jr, MD
[2019-06-25 17:01] VITALS: BP 101/55
[2019-06-26] MEDS ORDERED: VANCOMYCIN 1,100 MG in NS 250 ML IV SCH (04:00)
== END 2019-06-25 19:00 | DRG 603 ==
LOC: ED 22:06 → 3N 06-19 04:20 → SUATTDRO 06-19 04:20
PROVIDERS: ADMIT Emergency Medicine; ATTEND Emergency Medicine